=== PATIENT | female | born 1980 | race Caucasian/White ===

== ENCOUNTER 2017-03-29 18:38 | Emergency (ER) | payer BC, SELFPAY ==
[2017-03-29] MEDS ORDERED: Proparacaine 0.5% Opth 15 ML BOT ONE (20:13)
[2017-03-29] MEDS ORDERED: Fluorescein Opthalmic Strip ONE (20:13)
[2017-03-29] MEDS ORDERED: Ibuprofen 800 MG TAB ONE (21:07)
[2017-03-29] MEDS ORDERED: Erythromycin Base 0.5% Oint 1 GM TUBE ONE (21:07)
== END 2017-03-29 21:10 | disposition home or self-care (01) ==
LOC: ERS 18:38
DX: S05.02XA Injury of conjunctiva and corneal abrasion without foreign body, left eye, initial encounter (principal); J45.909 Unspecified asthma, uncomplicated; Z86.73 Personal history of transient ischemic attack (TIA), and cerebral infarction without residual deficits; X58.XXXA Exposure to other specified factors, initial encounter
CPT/HCPCS: 99284

== ENCOUNTER 2017-05-26 12:01 | Observation (INO) | payer BC, SELFPAY ==
[2017-05-26 12:32] LABS: #Eosinphils 0.5 thou/uL (0.0-0.7); #Lymphocytes 1.8 thou/uL (1.20-3.40); #Monocytes 0.4 thou/uL (0.11-0.59); #Neutrophils 4.6 thou/uL (1.40-6.50); %Basophils 0.3 % (0.0-1.0); %Lymphocytes 24.1 % (21.0-51.0); Hematocrit 38.8 % (36.0-47.0); Mean Platelet Volume 7.1 fL (7.4-10.4); Red Blood Cell (RBC) Count 4.36 mill/uL (4.20-5.40); White Blood Cell (WBC) Count 7.3 thou/uL (4.8-10.8)
[2017-05-26 12:53] LABS: ALT (SGPT) 21 U/L (8-55); AST (SGOT) 14 U/L (5-34); Alkaline Phosphatase 98 U/L (40-150); Anion Gap 13 mmol/L (10-20); BUN (Urea Nitrogen) 13 mg/dL (7.0-18.7); Bilirubin, Total 0.5 mg/dL (0.2-1.2); Calc. Creatinine Clearance 0 mL/min (70-130); Calcium 9.4 mg/dL (7.8-10.44); Carbon Dioxide 28 mmol/L (22-29); Chloride 103 mmol/L (98-107); Estimated GFR-MDRD Greater than 90; Globulin 2.8 g/dL (2.4-3.5); Protein, Total 6.9 g/dL (6.0-8.3)
[2017-05-26 13:15] LABS: Troponin I Less than 0.010 ng/mL (< 0.028)
--- NOTE | 2017-05-26 13:26 | RAD ---
PORTABLE CHEST: Date: 05/26/17 HISTORY: Syncope. COMPARISON: 01/30/16 study. FINDINGS: The film was shot in a lordotic fashion. The heart size appears enlarged. Mediastinal structures are unremarkable. Lungs are clear of infiltrates. IMPRESSION: Cardiomegaly. Heart size appears more prominent than on the prior exam. A PA chest film would be help ful in better assessment. POS: [facility]
[2017-05-26 13:32] LABS: Bilirubin Negative (Negative); Blood, Urine Negative (Negative); Glucose, Urine (Dipstick) Negative (Negative); Ketone, Urine Negative (Negative); Nitrite Negative (Negative); Protein, Urine (Dipstick) Negative (Neg-Trace); Urobilinogen 0.2 mg/dL (0.2-1.0)
[2017-05-26 13:38] LABS: Bacteria/HPF None Seen HPF (None Seen); Hyaline Casts/LPF 0-3 HYALINE CAST LPF (0-3 Hyaline); RBC/HPF 0-3 HPF (0-3); WBC/HPF 0-3 HPF (0-3)
--- NOTE | 2017-05-26 14:46 | CT ---
CT ANGIOGRAM OF CHEST: Date: 05/26/17 HISTORY: Dizziness. Syncopal episode. Elevated D-Dimer. COMPARISON: None. TECHNIQUE: CT angiogram of chest performed in axial plane. Bilateral oblique and coronal three-dimensional refor matted images are submitted for interpretation. FINDINGS: There is a well circumscribed hypodensity in the prevascular space compatible with a 2.0 cm cyst. No solid mass or lymphadenopathy in the mediastinum. Heart size is normal. No pericardial fluid. The tho racic aorta and upper abdominal aorta have an overall normal caliber. No periaortic fat stranding. Visualized solid organs are unremarkable. Trachea and central bronchi are patent. Dependent atelectatic changes are noted. There is a 5.0 mm no dule in the right lower lobe. There is a 4.0 mm nodule in the superior segment of the right lower lob e. Inadequate contrast opacification of pulmonary arterial system to level of segmental arteries. No filling defect to suggest thromboembolism. No lytic or blastic lesions in the osseous structures. IMPRESSION: 1. No evidence of pulmonary artery embolism to level of segmental arteries. 2. 5.0 mm nodule in the right lower lobe. Follow-up CT in 1 year is recommended. CODE LN. POS: [facility]
[2017-05-26] MEDS ORDERED: Acetaminophen 325 MG TAB PO PRN (15:09)
[2017-05-26] MEDS ORDERED: Ondansetron ODT 4 MG TAB PO PRN (15:09)
[2017-05-26] MEDS ORDERED: Ondansetron HCl/PF 4 MG/2 ML Vial IVP PRN (15:09)
[2017-05-26] MEDS ORDERED: Acetaminophen 650 MG Suppository PR PRN (15:09)
[2017-05-26] MEDS ORDERED: diphenhydrAMINE 50 MG CAP PO PRN (15:09)
[2017-05-26] MEDS ORDERED: Calcium Carbonate 500 MG ChewTAB PO PRN (15:09)
[2017-05-26] MEDS ORDERED: Milk Of Magnesia 30 ML UDCUP PO PRN (15:09)
[2017-05-26 15:42] LABS: Troponin I Less than 0.010 ng/mL (< 0.028)
[2017-05-26] MEDS ORDERED: ISOVUE-370 76%-LOCM 1 ML ONE ×2 (15:44→15:46)
[2017-05-26] MEDS ORDERED: Ketorolac Tromethamine 30 MG/ML VIAL IVP SCH (16:00)
[2017-05-26] MEDS ORDERED: Aspirin 325 MG TAB PO SCH (16:00)
[2017-05-26] MEDS ORDERED: Betamethasone Val 0.1% OINT 15 GM TUBE TOP PRN (16:14)
[2017-05-26] MEDS ORDERED: Metoclopramide HCl 10 MG/2 ML VIAL IVP SCH (16:15)
[2017-05-26] MEDS ORDERED: diphenhydrAMINE 50 MG/ML VIAL IVP SCH (16:15)
[2017-05-26] MEDS: Sodium Chloride 0.9% 1,000 ML IV SCH (16:37)
[2017-05-26 16:39] VITALS: BMI 61.4
[2017-05-26 16:39] LABS: Hemoglobin A1c 5.2 % (4.0-6.0)
[2017-05-26 16:50] LABS: Magnesium 2.1 mg/dL (1.6-2.6); Phosphorus 4.3 mg/dL (2.3-4.7)
[2017-05-26 18:48] LABS: Troponin I Less than 0.010 ng/mL (< 0.028)
[2017-05-26] MEDS: Docusate 100 MG CAP PO SCH (20:48)
[2017-05-26] MEDS ORDERED: Ketorolac Tromethamine 30 MG/ML VIAL IVP PRN (22:00)
--- NOTE | 2017-05-26 22:03 | CT ---
CT HEAD NONCONTRAST CTA AMBLER OF [place] AND 3D VOLUME RENDERING CTA NECK WITH 3D VOLUME RENDERING 05/26/17 CLINICAL HISTORY: Syncope. FINDINGS: No evidence of intracranial hemorrhage, mass effect, midline shift, or ventriculomegaly. There is limited evaluation of the arteriogram of the neck due to patient body habitus. The imaged ao rtic arch is grossly patent as are the great vessels that emanate from the aortic arch. Bilateral sub clavian arteries are grossly patent. Evaluation of the bilateral common carotid arteries and cervical internal carotid arteries reveals no evidence of high grade focal stenosis or occlusion. There is a dominant left vertebral artery which is patent throughout its course. The right vertebral artery is d iffusely small in caliber. Evaluation of the [place] of [place] reveals no high grade stenosis or occlusion involving the MAHI, MCA , or [employer] bilaterally. Each terminal carotid artery is patent. No significant stenosis of the basilar artery. No discrete intracranial aneurysm is seen. IMPRESSION: 1. No acute arterial pathology of the head and neck. 2. No acute intracranial hemorrhage or mass effect.
[2017-05-27] MEDS: Sodium Chloride 0.9% 1,000 ML IV SCH ×2 (02:05→13:23)
[2017-05-27 05:42] LABS: Anion Gap 12 mmol/L (10-20); BUN (Urea Nitrogen) 11 mg/dL (7.0-18.7); Calc. Creatinine Clearance 237 mL/min (70-130); Calcium 8.2 mg/dL (7.8-10.44); Carbon Dioxide 20 mmol/L (22-29); Chloride 107 mmol/L (98-107); Cholesterol 176 mg/dl (< 200 Desired); Estimated GFR-MDRD Greater than 90; LDL Cholesterol, Calculated 102 mg/dL
[2017-05-27 05:53] LABS: #Eosinphils 0.5 thou/uL (0.0-0.7); #Lymphocytes 1.7 thou/uL (1.20-3.40); #Monocytes 0.5 thou/uL (0.11-0.59); #Neutrophils 4.2 thou/uL (1.40-6.50); %Basophils 0.6 % (0.0-1.0); %Eosinophils 7.2 % (0.0-10.0); %Lymphocytes 24.2 % (21.0-51.0); %Monocytes 7.5 % (0.0-10.0); Mean Platelet Volume 6.4 fL (7.4-10.4)
--- NOTE | 2017-05-27 06:54 | PDOC.FM ---
- Subjective Subjective: Patient is lying comfortably in bed. She has not had any more episodes of syncope. Reports an odd stinging sensation in her R latter day area when she uses the bathroom or strains and that pain happened before both episodes of syncope yesterday. Today, DELATORRE is resolved. - Objective MAR Reviewed: Yes Vital Signs & Weight: Vital Signs (12 hours) Temp Pulse Resp BP BP Pulse Ox 05/27/17 05:04 98.0 F 73 20 96/48 L 95 05/27/17 00:00 98.8 F 79 16 108/59 L 94 L 05/26/17 20:48 97.6 F 79 16 05/26/17 19:40 97.6 F 79 16 121/59 L 94 L Weight Weight 115.711 kg I&O: 05/25/17 05/26/17 05/27/17 06:59 06:59 06:59 Intake Total 1895 Balance 1895 Result Diagrams: 05/27/17 05:48 05/27/17 05:12 Phys Exam - Physical Examination Constitutional: NAD HEENT: moist MMs Neck: full ROM ttp along suboccipital musculature Respiratory: no wheezing, no rales, no rhonchi, clear to auscultation bilateral Cardiovascular: RRR, no significant murmur Gastrointestinal: soft, non-tender 1+ edema b/l Neurological: moves all 4 limbs Psychiatric: normal affect, A&O x 3 Skin: cap refill <2 seconds Dx/Plan (1) Asthma Code(s): J45.909 - UNSPECIFIED ASTHMA, UNCOMPLICATED Status: Acute (2) Syncope Code(s): R55 - SYNCOPE AND COLLAPSE Status: Acute (3) HTN (hypertension) Code(s): I10 - ESSENTIAL (PRIMARY) HYPERTENSION Status: Acute (4) Pulmonary nodule Code(s): R91.1 - SOLITARY PULMONARY NODULE Status: Acute (5) Morbid obesity Code(s): E66.01 - MORBID (SEVERE) OBESITY DUE TO EXCESS CALORIES Status: Acute (6) Bilateral lower extremity edema Code(s): R60.0 - LOCALIZED EDEMA Status: Acute - Plan Plan: Syncope - Likely 2/2 migraine with complex aura vs hypotension vs. CVA - Orthostatics wnl - BP's low and on home Amlodipine, have held, but could be precipitating event - CThead and CTAhead and neck wnl - continue telemetry monitoring - echo to evaluate for valvular pathology HTN - held home Amlodipine - patient hypotensive overnight Headache - likely migraine, responded to combination of Benadryl, Reglan, and Toradol - will discharge on migraine medication. Likely Sumitriptan. Asthma - albuterol nebs prn Pulmonary Nodule - incidental finding on CTa - follow up outpatient in 1 month Morbid Obesity - educate on diet and exercise LE Edema - likely 2/2 Amlodipine - will get echo to evaluate cardiac function
[2017-05-27] MEDS ORDERED: Aspirin 325 MG TAB PO SCH (09:00)
[2017-05-27] MEDS: Docusate 100 MG CAP PO SCH (10:05)
--- NOTE | 2017-05-27 11:36 | HP-2 ---
DATE OF ENCOUNTER: 05/26/2017 TIME OF ENCOUNTER: 1530 hours. CODE STATUS: FULL. PRIMARY CARE PHYSICIAN: Dr. Hiram Weinberg, [facility] physician. ATTENDING: Dr. Nba Bahena. PGY-3: Dr. Susie Robbins. HISTORIAN: Patient. CHIEF COMPLAINT: Passed out. HISTORY OF PRESENT ILLNESS: A 36-year-old patient with past medical history significant for asthma, newly diagnosed hypertension, recent migraine, headaches who presented with 2 episodes of syncope tod ay. Patient states the initial one occurred at work at a long-term stating she helped physician of patient and then went about her business turning around suddenly and then after the sitting position changed saw blackness and then "woke up from passing out." She states that she did have a headache a t that time, but denied any other concerning symptoms including dizziness, presyncopal syndrome and n o nausea or vomiting, chest pain, shortness of breath prior to or associated with episode. Because o f this episode, patient was sent to the emergency room. She drove herself to the ED and prior to arr iving at the ED, patient states she passed out again at the rug white. She again remembers seeing bl ackness and having a headache at the time of the event, but denies any presyncopal prodrome. The pat ient states that daughter behind her had to come get her out of the car and helped her get to the [facility] room, because she was was slumped over and passed out at the light. Patient has had increasin g headaches over the last few months and describes them as migraines, which are not helped with over- the-counter Excedrin pills. Patient endorses her headaches being like "not getting enough blood in h er head". She does also have a significant history for possible TIA previously, which is also associ ated with headache. The patient was evaluated at [facility] for her symptoms this past July and denies any current deficit. PAST MEDICAL HISTORY: Significant for asthma, fibromyalgia, migraine disorder, hypertension as well as prior cervical cancer, status post cryotherapy 5 years ago. PAST SURGICAL HISTORY: Cholecystectomy, section, right knee surgery, and cryotherapy to the cervix. ALLERGIES: To LATEX and ALDARA. MEDICATIONS: Amlodipine 5 mg p.o. every day, and DuoNeb p.r.n. symptoms. FAMILY HISTORY: The patient denies any significant past medical history. SOCIAL HISTORY: Patient denies any tobacco, alcohol or drug use. The patient works as an aide in a long-term, she is , with one adoptive child. Denies any ill contacts. Last menstrual period on 04/29/2017. REVIEW OF SYSTEMS: A complete 10-point review of systems was performed and found to be positive per HPI. Additionally, the patient endorses chills, but no fever, fatigue and malaise, vision changes wi th blackness in her vision, slight increase in lower extremity edema, nausea, rash as in lesions and itching to bilateral feet, bilateral knee pain after a fall from a syncopal episode, swelling and obv iously the syncope. Patient significantly denied any shortness of breath, cough, congestion, orthopn ea or paroxysmal nocturnal dyspnea. PHYSICAL EXAMINATION: VITAL SIGNS: Blood pressure on arrival to the ED, 110/57 which increased to 160/90 throughout her em ergency room stay, pulse 93, respirations 18, pulse ox 96% on room air, weight 101 kilograms. GENERAL: Alert, oriented x3, no acute distress. Well-developed, obese, appropriately interactive fe male. EYES: Pupils equal, round, react to light. Extraocular muscles intact. Conjunctivae within normal limits . ENT: Nasal mucosa within normal limits. Oropharynx within normal limits. Right serous otitis behin d the TM with phonophobia. NECK: Supple, no lymphadenopathy, no thyromegaly, no carotid bruits. CARDIOVASCULAR: Regular rate and rhythm, no murmurs, no gallops. Radial and pedal pulses 2+/4. RESPIRATORY: Normal effort, no retractions. LUNGS: Clear to auscultation bilaterally. SKIN: Warm and dry, no cyanosis. Lesions include bilateral feet eczematous rashes which have excori ations. ABDOMEN: Soft, nontender to palpation. Bowel sounds are active in all 4 quadrants. Abdomen is obese, but no masses or distention. No costovertebral angle tenderness. EXTREMITIES: No clubbing, no cyanosis, trace bilateral nonpitting edema. MUSCULOSKELETAL: Structure, tone, strength and range of motion within normal limits and intact. NEUROLOGIC: No focal deficits. Sensation intact. Cranial nerves are intact with no focal deficits. GCS 15. PSYCHIATRIC: Appropriate. LABORATORY DATA: 1. CBC: White blood cells 7.3, hemoglobin 13, hematocrit 38.8, MCV 89, platelets 194. 2. CMP: Sodium 140, potassium 3.8, chloride 103, bicarbonate 28, BUN 13, creatinine 0.69, GFR 90, g lucose 125, calcium 9.4, protein 6.9, albumin 4.1, AST 14, ALT 21, alkaline phosphatase 98, bilirubin 0.5. 3. Cardiac enzymes: CK 51, CK-MB 0.8, troponin less than 0.010. D-dimer 0.49. UA performed are gr ossly negative without trace leukocyte esterase and 7-10 squamous epithelial cells. Beta hCG negativ e. 4. EKG, flattened T waves in inferior leads and a QTC of 391, unchanged from 2016 prior scan. 5. Chest x-ray shows cardiomegaly, which is increased from prior studies, otherwise no acute disease . IMAGING: Patient received a CT angiogram of the chest given her elevated D-dimer and found to have n o pulmonary embolus; however, did have 5 mm right lower lobe pulmonary nodule in which the radiologis t recommended repeat CT scan within 1 year. ASSESSMENT AND PLAN: A 36-year-old female with: 1. Syncope, etiology likely migraine with atypical; however, differential diagnoses also includes ne urogenic versus cardiogenic cause. Orthostatic presyncopal and reflex syncope/vasovagal syncope were on the differential diagnosis given patient's HPI and lack of prodromal symptoms. We will monitor t he patient on tele overnight. Repeat EKG on p.r.n. symptoms and again in the morning, we will check CT angiogram of the head and neck to rule out any pathology and consider MRI in the morning. We chris l also continue to monitor vitals and check orthostatics at this time. Treat migraines symptomatical ly and consider Neurology consultation given syncope and migraine with concern for neurogenic versus cardiogenic etiology. 2. Migraine headache, cocktail given with Toradol, Reglan, and Benadryl. The patient will likely ne ed prophylactic treatment given her recurrent frequent migraine not treated with OTC Excedrin. Sympt oms appeared to be approximately once per week per patient history. 4. Hypertension, this is uncontrolled based on studies here. We will continue the amlodipine and mo nitor given her medications and adjust as needed. 5. History of possible transient ischemic attack. Check records from [facility] to compare prior imaging studies. 6. Cardiomegaly patient endorses occasional weight gain, increase in lower extremity edema as well as a new onset uncontrolled hypertension, concern for possible underlying diastolic congestive h eart failure versus systolic congestive heart failure. We will check an echocardiogram and follow up pending results; however, does not appear to be exacerbated or overtly volume overloaded at this kristopher e. 7. A 5 mm pulmonary nodule and the patient is not symptomatic at this time. A repeat CT scan of the chest within one year per radiology recommendations. 8. Asthma, p.r.n. DuoNeb, albuterol. DISPOSITION AND LENGTH OF STAY: Anticipate 1-2 days of hospital stay. Symptomatic medication will be provided. History and physical as well as management were discussed with Dr. Purvi Pop in agreement with the assessment and plan.
--- NOTE | 2017-05-27 15:04 | ADD-PRG ---
DATE OF SERVICE: 05/27/2017 This is an addendum to the note of Dr. Debbie Simon. Ms. Junior is a pleasant, obese 36-year-old female admitted with syncope. Her workup thus far, [facility] is rather extensive, is negative. This includes a CT of the head and neck negative. EKG showing no arrhythmia. Telemetry so for showing no arrhythmia. Labs all within normal limits. It was noted that her blood pressure systolic is 95 and this possibly could account for her syncope, although she gave no history consistent with orthostasis. This was also checked by us and there was no orthostas is. In any event, we will hold her amlodipine, monitor blood pressure and have her followup with her PCP.
[2017-05-27 16:33] VITALS: BP 125/60; TEMP 98.2
== END 2017-05-27 18:12 | disposition home or self-care (01) ==
LOC: ERS 12:01 → 2SW 16:22
PROVIDERS: ADMIT Family Medicine; ATTEND Family Medicine
DX: R55 Syncope and collapse (principal); J45.909 Unspecified asthma, uncomplicated; I10 Essential (primary) hypertension; G43.909 Migraine, unspecified, not intractable, without status migrainosus; R91.1 Solitary pulmonary nodule; Z91.040 Latex allergy status; Z88.8 Allergy status to other drugs, medicaments and biological substances; Z79.899 Other long term (current) drug therapy; Z98.890 Other specified postprocedural states; Z85.41 Personal history of malignant neoplasm of cervix uteri
CPT/HCPCS: 36415; 70496; 70498; 71010; 71275; 80048; 80053; 80061; 81003; 81015; 82553; 83036; 83735; 84100; 84443; 84484; 84703; 85025; 85379; 93005; 93010; 93306; 96361; 96374; 96375; G0378; J1200; J1885; J2765

== ENCOUNTER 2017-06-22 11:26 | Emergency (ER) | payer BC | END 2017-06-22 13:26 | disposition home or self-care (01) | LOC: ERS 11:26 | DX: J11.1 Influenza due to unidentified influenza virus with other respiratory manifestations (principal); E66.9 Obesity, unspecified; J45.909 Unspecified asthma, uncomplicated; Z86.73 Personal history of transient ischemic attack (TIA), and cerebral infarction without residual deficits; Z85.41 Personal history of malignant neoplasm of cervix uteri | CPT/HCPCS: 93005 ==

== ENCOUNTER 2017-06-24 17:08 | Emergency (ER) | payer BC, SELFPAY ==
[2017-06-24 18:23] LABS: #Eosinphils 0.6 thou/uL (0.0-0.7); #Lymphocytes 1.5 thou/uL (1.20-3.40); #Monocytes 0.4 thou/uL (0.11-0.59); #Neutrophils 5.1 thou/uL (1.40-6.50); %Basophils 0.4 % (0.0-1.0); %Lymphocytes 19.4 % (21.0-51.0); %Monocytes 5.6 % (0.0-10.0); %Neutrophils 66.6 % (42.0-75.0); Hemoglobin 13.2 g/dL (12.0-16.0); Mean Corpuscular HGB CONC 32.7 g/dL (32.0-36.0); Mean Corpuscular Hemoglobin 29.6 pg (27.0-31.0); Mean Corpuscular Volume 90.5 fl (81.0-99.0); Mean Platelet Volume 6.9 fL (7.4-10.4); Platelet Count 192 thou/uL (130-400); RBC Distribution Width 12.6 % (11.5-14.5); Red Blood Cell (RBC) Count 4.45 mill/uL (4.20-5.40); White Blood Cell (WBC) Count 7.7 thou/uL (4.8-10.8)
[2017-06-24 18:46] LABS: ALT (SGPT) 25 U/L (8-55); AST (SGOT) 19 U/L (5-34); Albumin 4.1 g/dL (3.5-5.0); Alkaline Phosphatase 97 U/L (40-150); Anion Gap 13 mmol/L (10-20); BUN (Urea Nitrogen) 10 mg/dL (7.0-18.7); Bilirubin, Total 0.4 mg/dL (0.2-1.2); Calc. Creatinine Clearance 0 mL/min (70-130); Calcium 9.5 mg/dL (7.8-10.44); Carbon Dioxide 26 mmol/L (22-29); Chloride 103 mmol/L (98-107); Estimated GFR-MDRD 87; Globulin 3.1 g/dL (2.4-3.5); Glucose 104 mg/dL (70-105); Potassium 4.2 mmol/L (3.5-5.1); Protein, Total 7.2 g/dL (6.0-8.3); Sodium 138 mmol/L (136-145)
--- NOTE | 2017-06-24 18:52 | RAD ---
LEFT ANKLE THREE VIEWS: 06/24/17 HISTORY: Wound to ankle region, worsening over the last few days. There is no signs of fracture or joint effusion. Calcaneal spurs are present. No plain film evidence of osteomyelitis. IMPRESSION: No acute findings. POS: [facility]
== END 2017-06-24 19:23 | disposition home or self-care (01) ==
LOC: ERS 17:08
DX: L01.00 Impetigo, unspecified (principal); L03.116 Cellulitis of left lower limb; L03.114 Cellulitis of left upper limb; L03.113 Cellulitis of right upper limb; J45.909 Unspecified asthma, uncomplicated; Z86.73 Personal history of transient ischemic attack (TIA), and cerebral infarction without residual deficits
CPT/HCPCS: 36415; 80053; 83605; 85025

== ENCOUNTER 2017-07-25 00:03 | Emergency (ER) | payer BC, OTHER ==
[2017-07-25] MEDS ORDERED: HYDROcodone/Acetaminophen 10/325 mg Tablet ONE (02:10)
--- NOTE | 2017-07-25 07:34 | RAD ---
RIGHT KNEE 4 VIEWS: Date: 07/25/17 HISTORY: Pain. COMPARISON: Knee radiograph from 2013. FINDINGS: No acute fracture or malalignment. No significant joint effusion, although the lateral radiograph edith luation is limited. IMPRESSION: No acute fracture or malalignment. POS: [facility]
== END 2017-07-25 02:17 | disposition home or self-care (01) ==
LOC: ERS 00:03
DX: S83.91XA Sprain of unspecified site of right knee, initial encounter (principal); E66.9 Obesity, unspecified; J45.909 Unspecified asthma, uncomplicated; Z86.73 Personal history of transient ischemic attack (TIA), and cerebral infarction without residual deficits; X58.XXXA Exposure to other specified factors, initial encounter

== ENCOUNTER 2017-08-03 15:06 | Outpatient (CLI) | payer OTHER | END 2017-08-03 15:07 | disposition home or self-care (01) | LOC: BICMRI 15:06 | PROVIDERS: ATTEND Family Medicine | DX: M25.561 Pain in right knee (principal); Z98.890 Other specified postprocedural states ==

== ENCOUNTER 2017-09-16 01:19 | Emergency (ER) | payer BC, SELFPAY ==
[2017-09-16] MEDS ORDERED: Ketorolac Tromethamine 30 MG/ML VIAL ONE (03:10)
--- NOTE | 2017-09-16 08:33 | RAD ---
TWO VIEWS CHEST: 09/16/2017 HISTORY: Syncope. COMPARISON: 05/26/2017 FINDINGS: No pneumothorax or pleural fluid. No focal consolidation or alveolar edema. Heart and mediastinal c ontours are grossly unremarkable. The cardiac silhouette is prominent. Clips in the right upper quadrant suggest a prior cholecystectomy. IMPRESSION: No acute findings. POS: [facility]
== END 2017-09-16 04:14 | disposition home or self-care (01) ==
LOC: ERS 01:19
DX: S20.219A Contusion of unspecified front wall of thorax, initial encounter (principal); E66.9 Obesity, unspecified; J45.909 Unspecified asthma, uncomplicated; Z86.73 Personal history of transient ischemic attack (TIA), and cerebral infarction without residual deficits; Z85.89 Personal history of malignant neoplasm of other organs and systems; W55.82XA Struck by other mammals, initial encounter
CPT/HCPCS: 71046; 96372; J1885

== ENCOUNTER 2017-11-01 09:36 | Emergency (ER) | payer OTHER ==
[2017-11-01 10:41] LABS: #Eosinphils 0.4 thou/uL (0.0-0.7); #Lymphocytes 1.5 thou/uL (1.20-3.40); #Monocytes 0.4 thou/uL (0.11-0.59); #Neutrophils 3.4 thou/uL (1.40-6.50); %Basophils 0.5 % (0.0-1.0); %Lymphocytes 25.7 % (21.0-51.0); %Monocytes 7.2 % (0.0-10.0); %Neutrophils 59.6 % (42.0-75.0); Hemoglobin 12.3 g/dL (12.0-16.0); Mean Corpuscular HGB CONC 33.7 g/dL (32.0-36.0); Mean Corpuscular Hemoglobin 29.6 pg (27.0-31.0); Mean Corpuscular Volume 87.8 fl (81.0-99.0); Mean Platelet Volume 7.3 fL (7.4-10.4); Platelet Count 169 thou/uL (130-400); RBC Distribution Width 12.9 % (11.5-14.5); Red Blood Cell (RBC) Count 4.17 mill/uL (4.20-5.40); White Blood Cell (WBC) Count 5.6 thou/uL (4.8-10.8)
[2017-11-01 11:03] LABS: ALT (SGPT) 27 U/L (8-55); AST (SGOT) 14 U/L (5-34); Albumin 3.9 g/dL (3.5-5.0); Alkaline Phosphatase 92 U/L (40-150); Anion Gap 12 mmol/L (10-20); BUN (Urea Nitrogen) 11 mg/dL (7.0-18.7); Bilirubin, Total 0.3 mg/dL (0.2-1.2); CK (CPK) 39 U/L (29-168); Calc. Creatinine Clearance 0 mL/min (70-130); Calcium 8.9 mg/dL (7.8-10.44); Carbon Dioxide 26 mmol/L (22-29); Chloride 105 mmol/L (98-107); Estimated GFR-MDRD Greater than 90; Globulin 2.6 g/dL (2.4-3.5); Glucose 114 mg/dL (70-105); Potassium 3.8 mmol/L (3.5-5.1); Protein, Total 6.5 g/dL (6.0-8.3); Sodium 139 mmol/L (136-145)
[2017-11-01 11:08] LABS: CKMB 0.5 ng/mL (0-6.6); Troponin I Less than 0.010 ng/mL (< 0.028)
[2017-11-01] MEDS ORDERED: Loratadine 10 MG TAB PO SCH (11:30)
--- NOTE | 2017-11-01 11:44 | CT ---
NONCONTRAST HEAD CT: History: Patient woke up feeling dizzy. Comparison: 12-24-13 Technique: Noncontrast head CT is performed from skull base to skull vertex. FINDINGS: No parenchymal hemorrhage. No extraaxial hematoma. No midline shift. Basilar cisterns are patent. Bra in volume is age appropriate. Cortical acuna white matter differentiation is preserved. The ventricles and sulci are patent and symmetric. Complete opacification of the left sphenoid sinus, similar to the previous examination. Intact calvar ium. IMPRESSION: 1. No acute intracranial process. 2. Left sphenoid sinus disease, chronic. POS: [facility]
[2017-11-01] MEDS ORDERED: Meclizine HCl 25 MG TAB ONE (11:51)
== END 2017-11-01 12:40 | disposition home or self-care (01) ==
LOC: ERS 09:36
DX: R42 Dizziness and giddiness (principal); E66.9 Obesity, unspecified; J45.909 Unspecified asthma, uncomplicated; Z86.73 Personal history of transient ischemic attack (TIA), and cerebral infarction without residual deficits
CPT/HCPCS: 70450; 80053; 82550; 82553; 84484; 85025; 93005; 94760

== ENCOUNTER 2017-12-18 23:52 | Emergency (ER) | payer BC, SELFPAY ==
[2017-12-19 01:04] LABS: #Eosinphils 0.5 thou/uL (0.0-0.7); #Lymphocytes 2.2 thou/uL (1.20-3.40); #Monocytes 0.5 thou/uL (0.11-0.59); #Neutrophils 4.9 thou/uL (1.40-6.50); %Basophils 0.1 % (0.0-1.0); %Monocytes 6.4 % (0.0-10.0); %Neutrophils 60.4 % (42.0-75.0); Mean Corpuscular HGB CONC 34.8 g/dL (32.0-36.0); Mean Corpuscular Volume 86.3 fL (78.0-98.0); Mean Platelet Volume 7.1 fL (7.4-10.4); Platelet Count 208 thou/uL (130-400); RBC Distribution Width 12.7 % (11.5-14.5); Red Blood Cell (RBC) Count 4.33 mill/uL (4.20-5.40); White Blood Cell (WBC) Count 8.1 thou/uL (4.8-10.8)
[2017-12-19 01:07] LABS: Bilirubin Negative (Negative); Blood, Urine Large (Negative); Glucose, Urine (Dipstick) Negative (Negative); Leukocyte Negative (Negative); Nitrite Negative (Negative); Protein, Urine (Dipstick) Negative (Neg-Trace); Specific Gravity, Urine 1.025 (1.005-1.030); Urobilinogen 0.2 mg/dL (0.2-1.0)
[2017-12-19 01:08] LABS: Clarity Clear (Clear)
[2017-12-19 01:11] LABS: ALT (SGPT) 16 U/L (8-55); AST (SGOT) 13 U/L (5-34); Albumin 4.2 g/dL (3.5-5.0); Alkaline Phosphatase 99 U/L (40-150); Anion Gap 13 mmol/L (10-20); BUN (Urea Nitrogen) 9 mg/dL (7.0-18.7); Bilirubin, Total 0.2 mg/dL (0.2-1.2); Calc. Creatinine Clearance 0 mL/min (70-130); Carbon Dioxide 25 mmol/L (22-29); Chloride 102 mmol/L (98-107); Estimated GFR-MDRD Greater than 90; Globulin 2.8 g/dL (2.4-3.5); Glucose 117 mg/dL (70-105); Lipase 11 U/L (8-78); Potassium 3.9 mmol/L (3.5-5.1); Sodium 136 mmol/L (136-145)
[2017-12-19 01:16] LABS: Bacteria/HPF None Seen HPF (None Seen); Crystals/HPF None Seen HPF (Negative); Renal Epithelial None Seen HPF (0-3); Squamous Epithelial 0-3 HPF (0-3); Transitional Epithelial NONE SEEN HPF (0-3); WBC/HPF 0-3 HPF (0-3); Yeast-All Forms None Seen HPF (None Seen)
[2017-12-19 01:17] LABS: Hyaline Casts/LPF NONE SEEN LPF (0-3 Hyaline); Pregnancy Test - Urine (BHCG) Negative (Negative); Pregu Control Background? CLEAR/WHITE (CLR/WHITE); Pregu Control Bar Appear? YES (CONTROL BAR); Specific Gravity 1.025 (1.002-1.036)
[2017-12-19] MEDS ORDERED: Ketorolac Tromethamine 30 MG/ML VIAL ONE (01:53)
[2017-12-19] MEDS ORDERED: Ondansetron ODT 4 MG TAB ONE (01:53)
--- NOTE | 2017-12-19 08:14 | CT ---
FINAL REPORT EMERGENT AFTER HOURS CT OF THE ABDOMEN AND PELVIS WITHOUT CONTRAST: FINDINGS/IMPRESSION: I agree with the findings and impression given in the preliminary report per [facility] physician. No nhung dence of acute intraabdominal/pelvic abnormality. POS: [facility]
== END 2017-12-19 04:30 | disposition home or self-care (01) ==
LOC: ERS 23:52
DX: R10.9 Unspecified abdominal pain (principal); E66.9 Obesity, unspecified; J45.909 Unspecified asthma, uncomplicated; Z86.73 Personal history of transient ischemic attack (TIA), and cerebral infarction without residual deficits
CPT/HCPCS: 36415; 74176; 80053; 81003; 81015; 81025; 82550; 83690; 85025; 93005; 96361; 96374; 96375; J1885; J2270; Q0162

== ENCOUNTER 2017-12-21 16:42 | Emergency (ER) | payer SELFPAY ==
[2017-12-21 17:05] LABS: #Eosinphils 0.3 thou/uL (0.0-0.7); #Lymphocytes 1.3 thou/uL (1.20-3.40); #Monocytes 0.3 thou/uL (0.11-0.59); #Neutrophils 5.7 thou/uL (1.40-6.50); %Basophils 0.3 % (0.0-1.0); %Eosinophils 4.5 % (0.0-10.0); %Lymphocytes 16.9 % (21.0-51.0); %Monocytes 4.4 % (0.0-10.0); %Neutrophils 73.9 % (42.0-75.0); Hemoglobin 12.6 g/dL (12.0-16.0); Mean Corpuscular HGB CONC 34.1 g/dL (32.0-36.0); Mean Corpuscular Hemoglobin 29.3 pg (27.0-31.0); Mean Corpuscular Volume 86.1 fL (78.0-98.0); Mean Platelet Volume 6.5 fL (7.4-10.4); Platelet Count 205 thou/uL (130-400); RBC Distribution Width 12.5 % (11.5-14.5); White Blood Cell (WBC) Count 7.6 thou/uL (4.8-10.8)
--- NOTE | 2017-12-21 17:28 | RAD ---
RADIOGRAPH CHEST 1 VIEW: 12/21/17 HISTORY: 37-year-old female with acute chest pain. FINDINGS: There are no air space densities, pulmonary edema, pneumothorax, or cardiomegaly. The lateral costop hrenic angles are sharp. IMPRESSION: No acute cardiopulmonary findings. pretty [] POS: [facility]
[2017-12-21] MEDS ORDERED: Nitroglycerin 0.4 MG TAB (25 Tab Bottle) ONE (17:32)
[2017-12-21 17:33] LABS: CKMB 0.6 ng/mL (0-6.6); Troponin I Less than 0.010 ng/mL (< 0.028)
[2017-12-21 17:35] LABS: ALT (SGPT) 23 U/L (8-55); AST (SGOT) 22 U/L (5-34); Albumin 4.3 g/dL (3.5-5.0); Alkaline Phosphatase 96 U/L (40-150); Anion Gap 12 mmol/L (10-20); BUN (Urea Nitrogen) 9 mg/dL (7.0-18.7); Bilirubin, Total 0.5 mg/dL (0.2-1.2); CK (CPK) 51 U/L (29-168); Calc. Creatinine Clearance 0 mL/min (70-130); Calcium 9.4 mg/dL (7.8-10.44); Carbon Dioxide 29 mmol/L (22-29); Chloride 100 mmol/L (98-107); Estimated GFR-MDRD 86; Globulin 2.8 g/dL (2.4-3.5); Glucose 124 mg/dL (70-105); Potassium 3.7 mmol/L (3.5-5.1); Protein, Total 7.1 g/dL (6.0-8.3); Sodium 137 mmol/L (136-145)
[2017-12-21] MEDS ORDERED: Ondansetron ODT 4 MG TAB ONE (18:39)
[2017-12-21 20:12] LABS: Troponin I Less than 0.010 ng/mL (< 0.028)
--- NOTE | 2017-12-25 12:58 | EKG ---
Test Reason : Blood Pressure : / mmHG Vent. Rate : 100 BPM Atrial Rate : 100 BPM P-R Int : 142 ms QRS Dur : 076 ms QT Int : 338 ms P-R-T Axes : 062 013 031 degrees QTc Int : 436 ms Normal sinus rhythm Possible Left atrial enlargement Nonspecific ST abnormality Abnormal ECG Interference artifact present Confirmed by APULO SUTTON, ANTONETTE ([id number]), proposal editor CATHY DÍAZ ([id number]) on 12/25/2017 12:57:31 PM Referred By: Confirmed By:ANTONETTE BATES MD
== END 2017-12-21 21:10 | disposition home or self-care (01) ==
LOC: ERS 16:42
DX: R07.2 Precordial pain (principal); E66.9 Obesity, unspecified; J45.909 Unspecified asthma, uncomplicated; Z86.73 Personal history of transient ischemic attack (TIA), and cerebral infarction without residual deficits; Z79.899 Other long term (current) drug therapy
CPT/HCPCS: 36415; 71045; 80053; 82553; 83880; 84484; 85025; 85379; 93005; 94760; 96360; Q0162

== ENCOUNTER 2017-12-26 18:23 | Observation (INO) | payer SELFPAY ==
[~2017-12-26 18:23] MED LIST: ISOVUE-370 76%-LOCM 1 ML ONE
[2017-12-26 19:32] LABS: #Basophils 0.1 thou/uL (0.0-0.2); #Eosinphils 0.5 thou/uL (0.0-0.7); #Lymphocytes 1.6 thou/uL (1.20-3.40); #Monocytes 0.5 thou/uL (0.11-0.59); %Eosinophils 5.9 % (0.0-10.0); %Lymphocytes 21.1 % (21.0-51.0); %Monocytes 6.7 % (0.0-10.0); %Neutrophils 65.3 % (42.0-75.0); BHCG - Serum Negative (NEGATIVE); Hemoglobin 12.9 g/dL (12.0-16.0); Mean Corpuscular HGB CONC 33.3 g/dL (32.0-36.0); Mean Corpuscular Hemoglobin 28.8 pg (27.0-31.0); Mean Corpuscular Volume 86.7 fL (78.0-98.0); Platelet Count 209 thou/uL (130-400); Pregs Control Background? CLEAR/WHITE (CLR/WHITE); Pregs Control Bar Appear? YES (CONTROL BAR); RBC Distribution Width 12.6 % (11.5-14.5); Red Blood Cell (RBC) Count 4.46 mill/uL (4.20-5.40); White Blood Cell (WBC) Count 7.7 thou/uL (4.8-10.8)
[2017-12-26 19:41] LABS: ALT (SGPT) 19 U/L (8-55); AST (SGOT) 13 U/L (5-34); Albumin 4.1 g/dL (3.5-5.0); Alkaline Phosphatase 96 U/L (40-150); Anion Gap 13 mmol/L (10-20); BUN (Urea Nitrogen) 9 mg/dL (7.0-18.7); Bilirubin, Total 0.4 mg/dL (0.2-1.2); Calc. Creatinine Clearance 0 mL/min (70-130); Calcium 8.7 mg/dL (7.8-10.44); Carbon Dioxide 25 mmol/L (22-29); Chloride 105 mmol/L (98-107); Estimated GFR-MDRD Greater than 90; Globulin 2.7 g/dL (2.4-3.5); Glucose 113 mg/dL (70-105); Lipase 12 U/L (8-78); Potassium 3.7 mmol/L (3.5-5.1); Protein, Total 6.8 g/dL (6.0-8.3); Sodium 139 mmol/L (136-145)
--- NOTE | 2017-12-26 20:16 | CT ---
CT ANGIO CHEST WITH CONTRAST: INDICATIONS: Chest pain. Assess for pulmonary embolus. TECHNIQUE: Multiple axial tomograms obtained through the chest with IV enhancement following pulmonary angio pro tocol with multiplanar reconstruction and 3D post processing. FINDINGS: The pulmonary arteries show adequate enhancement. No evidence of pulmonary embolus identified. Revi ew of the lung medrano show no evidence of infiltrate. There is a 5 mm nodule in the right lung base, peripherally. Review of the mediastinum reveals an abnormal lymph node in the AP window, which measures up to 2.2 c m. There are other smaller, nonspecific lymph nodes seen. Images through the upper abdomen are unremarkable. IMPRESSION: 1. No evidence of pulmonary embolus. 2. A 5 mm nodule in the posterior right lung base. Follow-up elective CT in six months is recommend ed. 3. An abnormal lymph node in the anterior-posterior window measuring 2.2 cm. Recommend clinical cor relation regarding other adenopathy and followup is recommended. This lymph node can be reassessed a t the time of the repeat CT chest. CODE T POS: [facility]
[2017-12-26] MEDS ORDERED: Water For Inject, Bacteriostat 30 ML ONE (20:28)
[2017-12-26] MEDS ORDERED: methylPREDNISolone Sod Succ/PF 125 MG/2 ML VIAL ONE (20:28)
[2017-12-26 20:49] LABS: CKMB 0.6 ng/mL (0-6.6); Troponin I Less than 0.010 ng/mL (< 0.028)
[2017-12-26] MEDS ORDERED: Ondansetron ODT 8 MG TAB ONE (21:51)
--- NOTE | 2017-12-26 22:33 | PDOC.FPRHP ---
- History of Present Illness Chief Complaint: Chest pain & AMS History of Present Illness: 37yo female with pmh of asthma, obesity, HLD, fibromyalgia, hx of TIA, and recent dx of cluster headaches presented to ED for chest pain and AMS. Today she was driving with and son when she felt intense squeezing chest pain followed by no recollection of events until "waking" in ED. reports she stopped talking mid sentence and became dazed. She was able to continue to drive home. He helped her walk inside and then drove her to the ED. denies noticing any facial drooping, unilateral weakness or changes in speech. She reports recently coming to the ED 2 weeks ago with lower back pain and vomiting. This has not resolved and reports a 20lb weight loss since. Also reports loose stools and continues to have lower back pain radiating to RLQ. Pt also reports new onset of headaches several months ago. They start suddenly in occiput of head and last 2-5 minutes. She "blacks out" during these episodes. Afterwards she feels severely fatigued. These are triggered by walking up stairs, using restroom. ED Course: EKG: Inverted T-waves in V1-3. CTA negative for PE but revealed 5mm nodule in posterior right lung base. CT head for AMS with hx of TIA. Started Hydralazine for BP's 200's/100's. Methyprednisolone administered. - Allergies/Adverse Reactions Allergies Allergy/AdvReac Type Severity Reaction Status Date / Time aloe vera Allergy Verified 05/26/17 16:45 latex Allergy Verified 04/19/15 02:08 - Home Medications Medication Instructions Recorded Confirmed Type Ipratropium/Albuterol Sulfate 3 ml NEB [id number] PRN #0 neb 06/01/13 12/27/17 Rx [DuoNeb] Aspirin [Ecotrin Low Strength] 1 tab PO QAM 12/27/17 12/27/17 History Butalbital/Acetaminophen/Caffe 1 tab PO ONE PRN 12/27/17 12/27/17 History [Fioricet] Naproxen 500 mg PO Q12H PRN 12/27/17 12/27/17 History traMADol HCl [Tramadol HCl] 1 tab PO Q8H PRN 12/27/17 12/27/17 History - History PMHx: Hx of TIA (2017), HLD, Fibromyalgia, obesity, asthma, cluster HAs, cervical dysplasia PSHx: LEEP, Right Knee surgery 2014, FHx: DMII Social: Denies alcohol, tobacco or drug use. Lives with and adopted son. - Review of Systems General: reports: weight/appetite/sleep changes, fatigue. denies: fever/chills Respiratory: reports: shortness of breath. denies: congestion Cardiovascular: reports: chest pain. denies: edema Gastrointestinal: reports: nausea, vomiting, diarrhea, abdominal pain. denies: constipation Genitourinary: denies: incontinence Skin: denies: rashes Musculoskeletal: reports: pain. denies: swelling Neurological: denies: numbness, syncope, weakness (20lb wt loss in 2 weeks) - Vital signs BP: 136/99 HR: 83 RR: 22 Tmax: 98.4 Pox: 96% on RA - Physical Exam Constitutional: NAD, awake, alert and oriented HEENT: normocephalic and atraumatic, PERRLA, EOMI, conjunctiva clear, TM's clear and intact, normal nasal mucosa, MMM, oropharynx clear, good dention Neck: trachea midline, no LAD, no JVD, no thyromegaly Chest: no-tender to palpation Heart: RRR, normal S1/S2, no murmurs/rubs/gallops, pulses present, no edema Lungs: no respiratory distress, good air movement, no rales/rhonchi, no wheezing Abdomen: soft, bowel sounds present (RLQ pain) Musculoskeletal: normal structure Neurological: no focal deficit, other (Decreased sensation on right side) Skin: no rash/lesions, capillary refill <2 seconds Psychiatric: normal mood and affect FMR H&P: Results - Labs Result Diagrams: 12/26/17 18:30 12/26/17 18:30 Lab results: WBC 7.7 thou/uL (4.8-10.8) 12/26/17 18:30 Hgb 12.9 g/dL (12.0-16.0) 12/26/17 18:30 Hct 38.7 % (36.0-47.0) 12/26/17 18:30 MCV 86.7 fL (78.0-98.0) 12/26/17 18:30 Plt Count 209 thou/uL (130-400) 12/26/17 18:30 Neutrophils % 65.3 % (42.0-75.0) 12/26/17 18:30 Sodium 139 mmol/L (136-145) 12/26/17 18:30 Potassium 3.7 mmol/L (3.5-5.1) 12/26/17 18:30 Chloride 105 mmol/L (98-107) 12/26/17 18:30 Carbon Dioxide 25 mmol/L (22-29) 12/26/17 18:30 BUN 9 mg/dL (7.0-18.7) 12/26/17 18:30 Creatinine 0.71 mg/dL (0.6-1.1) 12/26/17 18:30 Glucose 113 mg/dL (70-105) H 12/26/17 18:30 Calcium 8.7 mg/dL (7.8-10.44) 12/26/17 18:30 Total Bilirubin 0.4 mg/dL (0.2-1.2) 12/26/17 18:30 AST 13 U/L (5-34) 12/26/17 18:30 ALT 19 U/L (8-55) 12/26/17 18:30 Alkaline Phosphatase 96 U/L (40-150) 12/26/17 18:30 Creatine Kinase 47 U/L (29-168) 12/26/17 18:30 CK-MB (CK-2) 0.6 ng/mL (0-6.6) 12/26/17 18:30 Serum Total Protein 6.8 g/dL (6.0-8.3) 12/26/17 18:30 Albumin 4.1 g/dL (3.5-5.0) 12/26/17 18:30 Lipase 12 U/L (8-78) 12/26/17 18:30 - EKG Interpretation EKG: NSR 92 T waves inverted V1 V2 V3 - Radiology Interpretation CT scan - chest Status: report reviewed by me Additional comment: no evidence of PE. 5mm nodule posterior right lung base. CT scan - head Status: report reviewed by me Additional comment: No acute intracranial process. Persistent left sphenoid sinus opacification. FMR H&P: A/P - Problem List (1) Asthma Current Visit: No Status: Acute Code(s): J45.909 - UNSPECIFIED ASTHMA, UNCOMPLICATED (2) HTN (hypertension) Current Visit: No Status: Acute Code(s): I10 - ESSENTIAL (PRIMARY) HYPERTENSION (3) Morbid obesity Current Visit: No Status: Acute Code(s): E66.01 - MORBID (SEVERE) OBESITY DUE TO EXCESS CALORIES (4) Pulmonary nodule Current Visit: No Status: Acute Code(s): R91.1 - SOLITARY PULMONARY NODULE (5) Altered mental status Current Visit: Yes Status: Acute Code(s): R41.82 - ALTERED MENTAL STATUS, UNSPECIFIED Qualifiers: Altered mental status type: transient alteration of awareness Qualified Code(s): R40.4 - Transient alteration of awareness (6) Vomiting Current Visit: Yes Status: Acute Code(s): R11.10 - VOMITING, UNSPECIFIED Qualifiers: Nausea presence: with nausea (7) Back pain Current Visit: Yes Status: Acute Code(s): M54.9 - DORSALGIA, UNSPECIFIED Qualifiers: Back pain location: low back pain Back pain laterality: right (8) Hx of TIA (transient ischemic attack) and stroke Current Visit: Yes Status: Acute Code(s): Z86.73 - PRSNL HX OF TIA (TIA), AND CEREB INFRC W/O RESID DEFICITS (9) Chest pain Current Visit: Yes Status: Acute Code(s): R07.9 - CHEST PAIN, UNSPECIFIED (10) Headache Current Visit: Yes Status: Acute Code(s): R51 - HEADACHE - Plan 37yo female presents with transient AMS and decreased right sided sensation with concern of stroke. 1. AMS - Obtain Brain CT 2. Chest pain r/o - trops x1 neg, continue to trend - EKG changes: T waves inverted in V1-3 stable from 12/21 - HEART score= 3 Vomiting - 2 wk hx - no electrolyte abnormalities - Zofran 4mg PRN - NPO - IV LR 100mL/hr Headaches - Dx'ed with Cluster headaches - Cont DIRECTOR OF INFORMATICS Fioricet - F/u Brain CT HTN - 216/100's - Hydralazine PRN for BP >220/110 Hx of TIA - Last year at the [facility], obtain records - Cont Aspirin 81 mg - F/u CT brain Back Pain - Hold Naproxen due to HTN - Start Tylenol PRN Asthma - Currently asymptomatic - lungs CTA - Cont DIRECTOR OF INFORMATICS duonebs PRN Right lung nodule - 5mm nodule in posterior right lung base found on CT - F/u with CT in 6mo FMR H&P: Upper Level - Pertinent history 37 yo F presents with acute episode of AMS while in the car today. Her reports they had just gotten snow cones and were sitting in the car when she stated she felt "off" and stared off into space. She felt woozy and also had some chest tightness. She then proceeded to drive home. Her states that while she was driving she was leaning over the steering well and continued to seem dazed. At that time they decided to bring her to the ER where he states it took multiple people to get her out of the car. He reports this reminded him of his own TIAs in the past. - Pertinent findings VS: hypertensive Gen: awake, alert, answering questions appropriately but seems distant at times and is having trouble following conversation HEENT: PERRL, EOMI, conjunctiva non-injected, CN II-XII intact CV: RRR, no murmurs RESP: CTAB ABD: soft, nontender, bowel sounds diffusely present EXT: No edema NEURO: ROM intact, kxba-ov-ctoa intact, grossly decreased sensation on R side ( face, RUE, RLE) and 4/5 administrative accountant strength on R and RLE strength - Plan Date/Time: 12/26/171 I, Barbara Alegria MD, PGY-3, have evaluated this patient and agree with findings/ plan as outlined by underwriting intern resident. Pertinent changes/additions are listed here. 37 yo F presents with AMS and chest pain 1. AMS - DDX includes CVA, TIA, seizure, atypical migraine - Will obtain CT and further imaging as indicated - NPO until bedside swallow - UDS - Consider neuro consult in a.m. 2. Chest pain - EKG with stable t-wave inversion from 12/21 - No ST changes - Will monitor on tele and trend troponins - No chest pain at present 3. HTN - Permissive HTN for 24 hours - Hydralazine PRN BP 220/110 4. ?Dx cluster headaches - Will review clinic records - Fioricet PRN headache - Possibly related to hypertension PPX: Lovenox
[2017-12-26 22:56] LABS: Troponin I 0.023 ng/mL (< 0.028)
[2017-12-26] MEDS ORDERED: hydrALAZINE 20 MG/ML VIAL ONE (23:04)
--- NOTE | 2017-12-27 00:36 | CT ---
NONCONTRAST HEAD CT: HISTORY: Altered mental status. COMPARISON: 11/01/2017 TECHNIQUE: A noncontrast head CT is performed from the skull base to the skull vertex. FINDINGS: No parenchymal hemorrhage. No extraaxial hematoma. No midline shift. The basilar cisterns are phillips nt. Brain volume is age appropriate. Cortical acuna white matter differentiation is preserved. The ventricles and sulci are patent and symmetric. Minimal right maxillary sinus mucosal disease. There is persistent and near complete opacification o f the left sphenoid sinus. Adequate aeration of the mastoid air cells. The calvarium is intact. Questionable presence of the cerebellar tonsils at the level of the foramen magnum. Correlate for ce rebellar tonsillar ectopia versus a Chiari mal formation. This can be better interrogated with an MR I. IMPRESSION: 1. No acute intracranial process. 2. Persistent left sphenoid sinus opacification. 3. Given the patient's symptoms, further evaluation with a brain MRI may be beneficial. POS: SHELBIE
[2017-12-27] MEDS ORDERED: hydrALAZINE 20 MG/ML VIAL SLOW IVP PRN (02:01)
[2017-12-27] MEDS ORDERED: Acetaminophen 325 MG TAB PO PRN (02:01)
[2017-12-27] MEDS ORDERED: Ondansetron ODT 4 MG TAB PO PRN (02:01)
[2017-12-27] MEDS ORDERED: Sodium Chloride 0.9% 1,000 ML IV SCH (02:01)
[2017-12-27 02:12] LABS: Troponin I Less than 0.010 ng/mL (< 0.028)
[2017-12-27 02:16] VITALS: BMI 58.8
--- NOTE | 2017-12-27 05:31 | PDOC.EVN ---
Event Note - Event Note Event Note: Patient seen and examined on 12/26/2017 @ 21:45, Case discussed with Dr. Duncan and agree with history, physical, assessment and plan as documented. Briefly this is a 37 yo WF with h/o asthma. obesity, fibromyalgia, and h/o TIA in 2017 presented with episode of altered mental status. Silvia reports that they had gotten snowcones and were eating them when he noticed that she was staring off and was not responding to him. This lasted about 2-3 minutes. She does not recall the episode. Afterwards she reports not feeling herself but unable to pinpoint why. Whille in ER she did complaining of pressure like chest pain which has now resolved. PMH/PSH/All/Meds/SH reviewed and agree with resident's documentation. Afebrile VSS Exam repeated by me and significant for decreased sensation to light touchon right face, and upper and lower extremity; 4+/5 strength on right; CN 2-[address] brain- negative CTA chest- no evidence of PE A/P: 1) Transient AMS- differential includes TIA/CVA, seizure, complex migraine , seizure - Place in obs - Serial neuro exams - consider MRI/MRA - consider neuro consult 2) Asthma - continue home meds
[2017-12-27 06:20] LABS: Cardiac Risk 4.8 (Less than 4.5)
--- NOTE | 2017-12-27 06:20 | PDOC.FM ---
- Subjective Subjective: 37 yo female seen this morning. Patient has a lot of anxiety about current situation. Patient states this has happened before and would like to get to bottom of it. She was previously diagnosed with cluster headaches, but couldn't afford the medication or the oxygen that was prescribed. Patient also notes some weight loss from n/v over the past couple of weeks. She is able to tolerate soups, snowcones, and liquids well however. Patient continues to complain of paresthesias to right upper extremity. She denies chest pain. She also complains of headache on right side as well. No other complaints today. - Objective Vital Signs & Weight: Vital Signs (12 hours) Temp Pulse Resp BP Pulse Ox 12/27/17 03:25 97.8 F 85 22 H 121/87 93 L 12/27/17 02:15 97.8 F 85 22 H 12/27/17 02:01 97.5 F L 79 20 142/91 H 94 L Weight Weight 114.759 kg Result Diagrams: 12/26/17 18:30 12/26/17 18:30 <Pablo Bella - Last Filed: 12/27/17 08:24> - Objective Vital Signs & Weight: Vital Signs (12 hours) Temp Pulse Pulse Pulse Resp BP BP 12/27/17 11:58 97.7 F 80 20 12/27/17 11:15 85 82 147/98 H 12/27/17 08:00 97.5 F L 82 16 121/82 12/27/17 07:46 97.5 F L 82 16 12/27/17 03:25 97.8 F 85 22 H 12/27/17 02:15 97.8 F 85 22 H 12/27/17 02:01 97.5 F L 79 20 BP BP Pulse Ox 12/27/17 11:58 137/87 92 L 12/27/17 11:15 151/93 H 12/27/17 08:00 92 L 12/27/17 07:46 121/82 92 L 12/27/17 03:25 121/87 93 L 12/27/17 02:15 12/27/17 02:01 142/91 H 94 L Weight Admit Weight 114.759 kg Weight 114.759 kg I&O: 07/01/18 07/02/18 07/03/18 06:59 06:59 06:59 Intake Total 400 Output Total 250 Balance 150 Result Diagrams: 12/26/17 18:30 12/26/17 18:30 <Vicki Marie - Last Filed: 12/27/17 13:16> Phys Exam - Physical Examination Constitutional: NAD HEENT: PERRLA Neck: no nodes Respiratory: no wheezing, clear to auscultation bilateral Cardiovascular: RRR, no significant murmur Gastrointestinal: soft, non-tender, no distention, positive bowel sounds Musculoskeletal: no edema, pulses present Neurological: moves all 4 limbs Decreased sensation to RUE Psychiatric: normal affect, A&O x 3 Skin: no rash <Pablo Bella - Last Filed: 12/27/17 08:24> Dx/Plan (1) Headache Code(s): R51 - HEADACHE Status: Acute (2) Hx of TIA (transient ischemic attack) and stroke Code(s): Z86.73 - PRSNL HX OF TIA (TIA), AND CEREB INFRC W/O RESID DEFICITS Status: Acute (3) Vomiting Code(s): R11.10 - VOMITING, UNSPECIFIED Status: Acute QualifierTitle: Nausea presence: with nausea (4) Asthma Code(s): J45.909 - UNSPECIFIED ASTHMA, UNCOMPLICATED Status: Acute (5) HTN (hypertension) Code(s): I10 - ESSENTIAL (PRIMARY) HYPERTENSION Status: Acute (6) Morbid obesity Code(s): E66.01 - MORBID (SEVERE) OBESITY DUE TO EXCESS CALORIES Status: Acute (7) Pulmonary nodule Code(s): R91.1 - SOLITARY PULMONARY NODULE Status: Acute - Plan Plan: AMS - Brain CT negative - MRI pending - A & O x 4 this AM Chest pain r/o - troponins negative x3 - EKG changes: T waves inverted in V1-3 stable from 12/21 - HEART score= 3 - Will defer stress at this time Vomiting - 2 wk hx - no electrolyte abnormalities - Zofran 4mg PRN - Advance diet as tolerated - IV LR 100mL/hr Headaches - Dx'ed with Cluster headaches - Cont COATER CARBON PAPER Fioricet - Brain CT negative, MRI pending - Likely need outpatient follow up for this HTN - 216/100's - Hydralazine PRN for BP >220/110 - BP well controlled without medication at this point Hx of TIA - [facility] - Cont Aspirin 81 mg - Statin therapy Back Pain - Hold Naproxen due to HTN - Start Tylenol PRN Asthma - Currently asymptomatic - Cont COATER CARBON PAPER duonebs PRN Right lung nodule - 5mm nodule in posterior right lung base found on CT - F/u with CT in 6mo Morbid Obesity - Counseled on weight loss, diet and exercise Disposition: Stable, will await MRI findings <Pablo Bella - Last Filed: 12/27/17 08:24> Attending Addendum - Attending Addendum Date/Time: 12/27/17 2781 I personally evaluated the patient and discussed the management with Dr. Bella. I agree with the History, Examination, Assessment and Plan documented above with any addition or exceptions noted below. The patient's symptoms have resolved. BP is stable. MRI is pending. If MRI is normal, will likely d/c home with outpt follow-up. Pt voiced agreement with this plan. <Vicki Marie - Last Filed: 12/27/17 13:16>
[2017-12-27] MEDS ORDERED: Aspirin 81 mg Enteric Coated Tablet PO SCH (09:00)
[2017-12-27] MEDS ORDERED: Enoxaparin Sodium 40 MG/0.4 ML SYRINGE SC SCH (09:00)
--- NOTE | 2017-12-27 10:24 | MRI ---
BRAIN MRI WITH AND WITHOUT CONTRAST: COMPARISON: Reference is made to a preceding, recent noncontrast head CT. CLINICAL INDICATION: Right-sided decrease in sensation, altered mental status. FINDINGS: Ventricular system is normal in size. There is no midline shift or acute territorial infarction. No hemorrhagic, intracranial susceptibility is seen. There is patient motion which does degrade image quality, thus limiting assessment. No pathologic intraaxial enhancement visualized. Complex opacifi cation of expanded left major sphenoid air cell and lateralized component. Within the left middle cr anial fossa, there is increased, mild volume of CSF signal anterior to the anterior pole of the left temporal lobe. There is also mild focal dilatation of the left temporal horn, without associated, pa thologic enhancement. IMPRESSION: 1. There is no acute intracranial abnormality identified. 2. Prominent sphenoid sinus opacification with associated expansion. This could relate to complex r etention cyst formation. There is no mass-like enhancement to indicate an enhancing polyp. Consider followup with ENT consultation on a nonemergent basis, as clinically indicated. 3. Additional details are described above. POS: SHELBIE
[2017-12-27 11:58] VITALS: TEMP 97.7
[2017-12-27 12:00] LABS: Amphetamine Not Detected (NotDetected); Barbiturates Screen Not Detected (NotDetected); Benzodiazepine Screen Not Detected (NotDetected); Cocaine Metabolite Screen Not Detected (NotDetected); Medtox Control Line Valid? VALID (VALID); Medtox Reader # READER 1; Methadone Not Detected (NotDetected); Methamphetamine Not Detected (NotDetected); Opiate Screen Not Detected (NotDetected); Oxycodone Screen Not Detected (NotDetected); Phencyclidine (PCP) Not Detected (NotDetected); THC/Cannabinoid Screen Not Detected (NotDetected); Tricyclic Screen Not Detected (NotDetected)
[2017-12-27 12:03] VITALS: BP 121/82
[2017-12-27] MEDS ORDERED: Gadobenate Dimeglumine 529 MG/1 ML (20ML VIAL) ONE (13:52)
[2017-12-27] MEDS ORDERED: Atorvastatin Calcium 40 MG TAB PO SCH (21:00)
--- NOTE | 2017-12-28 01:05 | DIS-2 ---
DATE OF ADMISSION: 12/26/2017 DATE OF DISCHARGE: 12/27/2017 RESIDENT: Dr. Bella. ADMITTING ATTENDING: Dr. Arechiga. DISCHARGE ATTENDING: Dr. Marie. Consults for Neurology, Dr. Vela, OT evaluation and treatment, PT evaluation and treatment, speech evaluation and treatment. PROCEDURES: 1. On 12/26/2017, patient underwent a chest thorax CTA that showed no evidence of pulmonary embolism . A 5-mm nodule in the posterior right lung base. Follow up elective CT in 6 months is recommended, abnormal lymph node in the anterior, posterior window measuring 2.2 cm. Recommend clinical correlat ion regarding other adenopathy and followup is recommended that this lymph node can be reassessed at the time of repeat CT of the chest. 2. On 12/26/2017, patient underwent a brain CT that showed no acute intracranial process, persistent left sphenoid sinus opacification. 3. On 12/27/2017, patient underwent a brain MRI that showed there is no acute intracranial abnormali ty identified, prominent sphenoid sinus opacification with associated expansion. This could relate t o complex retention cyst formation. There is no mass like enhancement to indicate an enhancing polyp . Consider following ENT consultation on a nonemergent basis as clinically indicated. PRIMARY DIAGNOSES: 1. Altered mental status. 2. History of transient ischemic attack. 3. Headache. 4. Vomiting. 5. Asthma. 6. Hypertension. 7. Morbid obesity. 8. Pulmonary nodule. DISCHARGE MEDICATIONS: 1. DuoNeb 3 mL nebulized q.4 hours p.r.n. 2. Tramadol 50 mg 1 tab p.o. q.8 hours p.r.n. 3. Naproxen 500 mg p.o. q.12 hours p.r.n. 4. Fioricet 1 tab p.o. p.r.n. 5. Aspirin 81 mg 1 tab p.o. q.a.m. 6. Lipitor 80 mg p.o. at bedtime. 7. Zofran 4 mg p.o. q.6 hours p.r.n. DISCONTINUED MEDICATIONS: None. HISTORY OF PRESENT ILLNESS AND HOSPITAL COURSE: A 37-year-old female who presents with past medical history of asthma, obesity, hyperlipidemia, fibromyalgia, history of TIA and recent diagnosis of clus ter headaches, presents to the ED for chest pain, altered mental status. Today while she was driving with and son. She felt intense wheezing or chest pain followed by no recollection of events until waking in the ED. reports she stopped talking, this became dazed. She was able to co jennifer on her drive home. He helped her walk inside and then drove her to the ED. denies no ticing any facial drooping, unilateral weakness or changes in speech. She reports recently come to [facility] ED 2 weeks ago with lower back pain and vomiting. This has not resolved and reports a 20-pound we ight loss since that time. Also reports loose stools and continues to have lower back pain radiating to the right lower quadrant. The patient also reports new onset headaches several months ago. They started suddenly in the occiput of head and last 2-5 minutes. She often blacks out during these epi sodes. Afterwards, she feels severely fatigued. These are triggered by walking upstairs and using t he restroom. During this hospitalization, patient was afebrile during the hospitalization and on admission to the hospital, she had severely elevated blood pressures to the 200s/100s. Patient did not receive any me dication and blood pressure decreased to normal ranges ranging from the 120s/80s to 140s/90s. Bruno alvarenga underwent an unremarkable head CT scan and brain MRI scan without further intervention planned. Gerardo cabrera did have elevated cholesterol at 202, LDL calculated 131 with a heart risk ratio 4.8. Because of her history of TIAs, it was decided that she would be started on atorvastatin 80 mg for recertific ation. Patient otherwise continued to complain of right upper extremity paresthesias and subjective weakness. Patient does at times have inconsistent neurologic exams as she complains of weakness in h er right upper and lower extremity as well as the right side of her face pointing away from a MCA nishi ology. With a negative MRI scan, it was at that time determined that the patient will be safe to be discharged home with close outpatient followup. Otherwise, the patient tolerated the hospitalization well and was discharged in appropriate condition. DISPOSITION: Stable. DISCHARGE INSTRUCTIONS: 1. Location: She will be discharged home in the care of herself and her family. 2. Diet will be a bariatric diet as we do advise further weight loss. 3. Activity will be as tolerated with no restrictions. 4. Followup will be with her PCP, [facility] in 3 days as well as [facility] in 2 weeks to further discuss the cyst formation in her sphenoid sinuses.
== END 2017-12-27 14:32 | disposition home or self-care (01) ==
LOC: ERS 18:23 → 2SW 23:08 → 2SE 12-27 01:10
PROVIDERS: ADMIT Family Medicine; ATTEND Family Medicine
DX: R07.89 Other chest pain (principal); R40.4 Transient alteration of awareness; J45.909 Unspecified asthma, uncomplicated; E78.5 Hyperlipidemia, unspecified; M79.7 Fibromyalgia; I10 Essential (primary) hypertension; R51 Headache; R91.1 Solitary pulmonary nodule; R11.2 Nausea with vomiting, unspecified; E66.01 Morbid (severe) obesity due to excess calories; Z68.43 Body mass index [BMI] 50.0-59.9, adult; Z86.73 Personal history of transient ischemic attack (TIA), and cerebral infarction without residual deficits; Z79.82 Long term (current) use of aspirin; Z91.040 Latex allergy status; Z91.048 Other nonmedicinal substance allergy status
CPT/HCPCS: 36415; 36416; 70450; 70553; 71275; 80053; 80061; 80306; 82553; 83690; 84484; 84703; 85025; 93005; 94640; 96361; 96372; 96374; A4216; A9579; G0378; G8978-GP-CK; G8979-GP-CI; J0360; J1650; J2930; J7620

== ENCOUNTER 2018-05-12 11:49 | Emergency (ER) | payer BC, SELFPAY ==
[2018-05-12 14:25] LABS: Bilirubin Negative (Negative); Blood, Urine Negative (Negative); Clarity CLOUDY (Clear); Glucose, Urine (Dipstick) Negative (Negative); Leukocyte Small (Negative); Nitrite Negative (Negative); Protein, Urine (Dipstick) Negative (Neg-Trace); Specific Gravity, Urine 1.022 (1.002-1.036); Urobilinogen 0.2 mg/dL (0.2-1.0); pH, Urine 5.5 (5.0-9.0)
[2018-05-12 14:26] LABS: Pregnancy Test - Urine (BHCG) Negative (Negative); Pregu Control Background? CLEAR/WHITE (CLR/WHITE); Pregu Control Bar Appear? YES (CONTROL BAR); Specific Gravity 1.022 (1.002-1.036)
[2018-05-12 14:28] LABS: Bacteria/HPF Rare-Few HPF (None Seen); RBC/HPF 0-3 HPF (0-3)
[2018-05-12 14:32] LABS: Hyaline Casts/LPF 0-3 HYALINE CAST LPF (0-3 Hyaline); Other Casts/LPF None Seen LPF (0-3 Hyaline); Renal Epithelial 0-3 HPF (0-3); Transitional Epithelial 0-3 HPF (0-3)
== END 2018-05-12 16:02 | disposition home or self-care (01) ==
LOC: ERS 11:49
DX: I95.9 Hypotension, unspecified (principal); E66.9 Obesity, unspecified; J45.909 Unspecified asthma, uncomplicated; Z86.73 Personal history of transient ischemic attack (TIA), and cerebral infarction without residual deficits
CPT/HCPCS: 36416; 81003; 81015; 81025; 87086; 99284

== ENCOUNTER 2018-06-28 22:58 | Emergency (ER) | payer SELFPAY ==
[2018-06-28 23:40] LABS: #Eosinphils 0.6 thou/uL (0.0-0.7); #Monocytes 0.5 thou/uL (0.11-0.59); #Neutrophils 6.8 thou/uL (1.40-6.50); %Basophils 0.4 % (0.0-1.0); %Monocytes 5.1 % (0.0-10.0); %Neutrophils 68.5 % (42.0-75.0); Hemoglobin 13.7 g/dL (12.0-16.0); Mean Corpuscular HGB CONC 34.2 g/dL (32.0-36.0); Mean Corpuscular Hemoglobin 29.4 pg (27.0-31.0); Mean Platelet Volume 7.1 fL (7.4-10.4); Platelet Count 227 thou/uL (130-400); RBC Distribution Width 13.3 % (11.5-14.5); Red Blood Cell (RBC) Count 4.65 mill/uL (4.20-5.40); White Blood Cell (WBC) Count 9.9 thou/uL (4.8-10.8)
[2018-06-28 23:59] LABS: ALT (SGPT) 30 U/L (8-55); AST (SGOT) 14 U/L (5-34); Albumin 4.3 g/dL (3.5-5.0); Alkaline Phosphatase 109 U/L (40-150); Anion Gap 16 mmol/L (10-20); BUN (Urea Nitrogen) 11 mg/dL (7.0-18.7); Bilirubin, Total 0.4 mg/dL (0.2-1.2); Calc. Creatinine Clearance 0 mL/min (70-130); Calcium 9.3 mg/dL (7.8-10.44); Carbon Dioxide 23 mmol/L (22-29); Chloride 102 mmol/L (98-107); Estimated GFR-MDRD 84; Globulin 3.1 g/dL (2.4-3.5); Glucose 126 mg/dL (70-105); Potassium 3.7 mmol/L (3.5-5.1); Protein, Total 7.4 g/dL (6.0-8.3); Sodium 137 mmol/L (136-145)
[2018-06-29] MEDS ORDERED: Ondansetron ODT 4 MG TAB ONE (00:44)
[2018-06-29 01:01] LABS: BHCG - Serum Negative (NEGATIVE); Pregs Control Background? CLEAR/WHITE (CLR/WHITE); Pregs Control Bar Appear? YES (CONTROL BAR)
--- NOTE | 2018-06-29 07:46 | RAD ---
UPRIGHT PORTABLE CHEST 1 VIEW: Date: 06/28/18 HISTORY: 37-year-old female with history of cough, nausea, vomiting, diarrhea, and abdominal pain. FINDINGS: There are some minimally increased bronchovascular markings, particularly in the infrahilar regions b ilaterally. These appear slightly more prominent than on the prior 09/16/17 study. There is no conflu ent lobar pneumonia. No significant pleural effusion. No cardiomegaly. IMPRESSION: Minimally increased bronchovascular markings in the infrahilar regions on the right, slightly more pr ominent than on prior study. This could conceivably represent a small focus of acute atypical pneumon ia. Correlate clinically. Consider follow-up imaging. No confluent pneumonia. POS: SHELBIE
== END 2018-06-29 01:28 | disposition home or self-care (01) ==
LOC: ERS 22:58
DX: J18.9 Pneumonia, unspecified organism (principal); E66.9 Obesity, unspecified; J45.909 Unspecified asthma, uncomplicated; Z86.73 Personal history of transient ischemic attack (TIA), and cerebral infarction without residual deficits
CPT/HCPCS: 36415; 71045; 80053; 83690; 84703; 85025; J7620; Q0162

== ENCOUNTER 2018-09-09 19:30 | Outpatient (CLI) | payer OTHER | END 2018-09-09 19:31 | disposition home or self-care (01) | LOC: SLEEPLAB 19:30 | PROVIDERS: ATTEND Family Medicine | DX: G47.33 Obstructive sleep apnea (adult) (pediatric) (principal); R53.83 Other fatigue; R40.0 Somnolence; R09.89 Other specified symptoms and signs involving the circulatory and respiratory systems; E66.9 Obesity, unspecified; Z68.43 Body mass index [BMI] 50.0-59.9, adult | CPT/HCPCS: 95811 ==

== ENCOUNTER 2018-10-07 21:47 | Observation (INO) | payer OTHER ==
--- NOTE | 2018-10-07 22:34 | RAD ---
Chest one view HISTORY: Cough. COMPARISON: Earlier exam on the same date. FINDINGS: Cardiac silhouette is at by projection. Shallow inspiration accentuates pulmonary markings. Mediastinum is midline. No lobar consolidation or evidence of pneumothorax. gambling monitor leads overlie the chest. IMPRESSION: No active cardiopulmonary abnormalities are demonstrated.
[2018-10-07 22:36] LABS: #Eosinphils 0.4 thou/uL (0.0-0.7); #Lymphocytes 0.9 thou/uL (1.20-3.40); #Monocytes 0.5 thou/uL (0.11-0.59); %Basophils 0.3 % (0.0-1.0); %Eosinophils 4.1 % (0.0-10.0); %Lymphocytes 9.5 % (21.0-51.0); %Monocytes 4.7 % (0.0-10.0); %Neutrophils 81.4 % (42.0-75.0); Hemoglobin 13.5 g/dL (12.0-16.0); Mean Corpuscular HGB CONC 33.2 g/dL (32.0-36.0); Mean Corpuscular Hemoglobin 29.3 pg (27.0-31.0); Mean Corpuscular Volume 88.2 fL (78.0-98.0); Mean Platelet Volume 7.2 fL (7.4-10.4); Platelet Count 225 thou/uL (130-400); Red Blood Cell (RBC) Count 4.59 mill/uL (4.20-5.40); White Blood Cell (WBC) Count 9.9 thou/uL (4.8-10.8)
[2018-10-07] MEDS ORDERED: cefTRIAXone\\ROCEPHIN 2 GM VIAL ONE (22:45)
[2018-10-07] MEDS ORDERED: Acetaminophen 325 MG TAB ONE (22:45)
[2018-10-07 23:07] LABS: ALT (SGPT) 32 U/L (8-55); AST (SGOT) 28 U/L (5-34); Albumin 4.6 g/dL (3.5-5.0); Alkaline Phosphatase 120 U/L (40-150); Anion Gap 13 mmol/L (10-20); BUN (Urea Nitrogen) 11 mg/dL (7.0-18.7); Bilirubin, Total 0.3 mg/dL (0.2-1.2); Calc. Creatinine Clearance 0 mL/min (70-130); Calcium 9.6 mg/dL (7.8-10.44); Carbon Dioxide 28 mmol/L (22-29); Chloride 100 mmol/L (98-107); Estimated GFR-MDRD 88; Globulin 3.1 g/dL (2.4-3.5); Glucose 135 mg/dL (70-105); Potassium 4.2 mmol/L (3.5-5.1); Protein, Total 7.7 g/dL (6.0-8.3); Sodium 137 mmol/L (136-145)
--- NOTE | 2018-10-07 23:54 | CT ---
CT arteriogram chest with IV contrast and 3-D imaging HISTORY: Chest pain. Dyspnea. COMPARISON: 12/26/2017. FINDINGS: No central pulmonary artery defects are apparent. Pulmonary arteries are not completely opa cified. Good contrast opacification of the aorta with normal branching of the great vessels. Tiny nonspecific subpleural nodule at the right posterolateral lung base is stable. Enlarged lymph node at the prevascular space is unchanged in appearance. No pleural fluid or pneumothorax. IMPRESSION: No CT evidence of pulmonary embolus. Chronic type findings are stable.
[2018-10-08] MEDS ORDERED: methylPREDNISolone Sod Succ/PF 125 MG/2 ML VIAL ONE (00:11)
[2018-10-08] MEDS ORDERED: Magnesium 2 GM/50 ML BAG (IN WATER) ONE (00:11)
--- NOTE | 2018-10-08 00:23 | PDOC.FPRHP ---
- History of Present Illness Chief Complaint: SOB History of Present Illness: 37 yo F with asthma and morbid obesity presents to ED for worsening cough & dypsnea. Sxs started 1 week ago with "allergy flare up," consisting of productive cough of green sputum. Yesterday patient's sxs declined with fever of 102F and severe dyspnea, chest tightness & wheezing that did not improve w/ albuterol INH and symbicort. She was seen at [facility] today rx to go to ED but opted for outpt tx & started on prednisone & azithromcyib. Due to continued worsening of sxs came to ED. Presented to ED severely dyspneic with O2 of 92% and given MgS, decadron, alb nebs and 2L NC. - Allergies/Adverse Reactions Allergies Allergy/AdvReac Type Severity Reaction Status Date / Time aloe vera Allergy Verified 10/08/18 01:41 latex Allergy Verified 10/08/18 01:41 - Home Medications Medication Instructions Recorded Confirmed Type Ipratropium/Albuterol Sulfate 3 ml NEB C4MS-UB PRN #0 neb 06/01/13 10/08/18 Rx [DuoNeb] Azithromycin [Zithromax] 250 mg PO DAILY 10/08/18 10/08/18 History Budesonide-Formoterol [Symbicort 1 puff INH BID 10/08/18 10/08/18 History 160-4.5] Labetalol [Normodyne] 100 mg PO BID 10/08/18 10/08/18 History Loratadine 10 mg PO DAILY PRN 10/08/18 10/08/18 History Prednisone [predniSONE 10 mg 10 mg PO QID 10/08/18 10/08/18 History Dosepak] - History PMHx: Hx of unprovoked PE, fibromyalgia, hx of cervical CA s/p tx, asthma, seasonal allergies PSHx: C section, R knee meniscal repair FHx:hx of blood clots, asthma, DM2 Social: denies t/e/d - Review of Systems General: reports: weight/appetite/sleep changes. denies: fever/chills ENT: reports: rhinorrhea Respiratory: reports: cough, congestion, shortness of breath Cardiovascular: denies: chest pain, palpitation Gastrointestinal: denies: nausea, vomiting, diarrhea, abdominal pain Genitourinary: denies: dysuria Skin: denies: rashes, lesions Musculoskeletal: denies: pain, tenderness Neurological: reports: weakness. denies: seizure - Vital signs BP: 130/89, Pulse: 95, Resp: 24, Pain: 7, O2 sat: 100 on 2L Oxygen, Time: 2018 00:03. - Physical Exam Constitutional: NAD, awake, alert and oriented, well developed -Constitutional: obese body habitus HEENT: normocephalic and atraumatic, PERRLA, EOMI, conjunctiva clear Neck: supple, FROM, trachea midline Chest: no-tender to palpation, no lesions Heart: RRR, normal S1/S2 Lungs: no respiratory distress -Lungs: mild expiratory wheezing limited expiratory effort due to body habitus Abdomen: non-tender Neurological: no focal deficit Skin: no rash/lesions, good turgor FMR H&P: Results - Labs Result Diagrams: 10/07/18 22:24 10/07/18 22:24 Lab results: WBC 9.9 thou/uL (4.8-10.8) 10/07/18 22:24 Hgb 13.5 g/dL (12.0-16.0) 10/07/18 22:24 Hct 40.5 % (36.0-47.0) 10/07/18 22:24 MCV 88.2 fL (78.0-98.0) 10/07/18 22:24 Plt Count 225 thou/uL (130-400) 10/07/18 22:24 Neutrophils % 81.4 % (42.0-75.0) H 10/07/18 22:24 Sodium 137 mmol/L (136-145) 10/07/18 22:24 Potassium 4.2 mmol/L (3.5-5.1) 10/07/18 22:24 Chloride 100 mmol/L (98-107) 10/07/18 22:24 Carbon Dioxide 28 mmol/L (22-29) 10/07/18 22:24 BUN 11 mg/dL (7.0-18.7) 10/07/18 22:24 Creatinine 0.74 mg/dL (0.6-1.1) 10/07/18 22:24 Glucose 135 mg/dL (70-105) H 10/07/18 22:24 Lactic Acid 1.6 mmol/L (0.5-2.2) 10/07/18 22:24 Calcium 9.6 mg/dL (7.8-10.44) 10/07/18 22:24 Total Bilirubin 0.3 mg/dL (0.2-1.2) 10/07/18 22:24 AST 28 U/L (5-34) 10/07/18 22:24 ALT 32 U/L (8-55) 10/07/18 22:24 Alkaline Phosphatase 120 U/L (40-150) 10/07/18 22:24 B-Natriuretic Peptide Less than 10.0 pg/mL (0-100) 10/07/18 22:24 Serum Total Protein 7.7 g/dL (6.0-8.3) 10/07/18 22:24 Albumin 4.6 g/dL (3.5-5.0) 10/07/18 22:24 - EKG Interpretation EKG: sinus tachycardia - Radiology Interpretation Chest x-ray Status: image reviewed by me, report reviewed by me Additional comment: poor inspiratory effort no PNA/consolidations CT scan - chest Status: report reviewed by me Additional comment: CT angio: neg. for PE FMR H&P: A/P - Problem List (1) Acute bronchitis Current Visit: Yes Status: Acute Code(s): J20.9 - ACUTE BRONCHITIS, UNSPECIFIED (2) Asthma exacerbation Current Visit: Yes Status: Acute Code(s): J45.901 - UNSPECIFIED ASTHMA WITH (ACUTE) EXACERBATION (3) History of pulmonary embolism Current Visit: Yes Status: Acute Code(s): Z86.711 - PERSONAL HISTORY OF PULMONARY EMBOLISM (4) HTN (hypertension) Current Visit: No Status: Acute Code(s): I10 - ESSENTIAL (PRIMARY) HYPERTENSION (5) Hx of TIA (transient ischemic attack) and stroke Current Visit: No Status: Acute Code(s): Z86.73 - PRSNL HX OF TIA (TIA), AND CEREB INFRC W/O RESID DEFICITS (6) Fibromyalgia Current Visit: No Status: Chronic (7) Morbid obesity Current Visit: No Status: Chronic Code(s): E66.01 - MORBID (SEVERE) OBESITY DUE TO EXCESS CALORIES (8) FRAN on CPAP Current Visit: Yes Status: Acute Code(s): G47.33 - OBSTRUCTIVE SLEEP APNEA ( ADULT) (PEDIATRIC); Z99.89 - DEPENDENCE ON OTHER ENABLING MACHINES AND DEVICES (9) Asthma Current Visit: No Status: Acute Code(s): J45.909 - UNSPECIFIED ASTHMA, UNCOMPLICATED - Plan #Likely acute bronchitis -With cough >5 days and CXR/CTA with no evidence of PNA, Flu neg, likely acute bronchitis -Continue albuterol NEB prn, 5 day steroid course -S/p rocephin, continue azithromycin to completion for anti-inflammatory component -Continue supportive care -Will obtain procal -mIVF due to dec po intake, dry on exam -Morbid obesity and asthma inc. patient risk of decline -Admit to medical/obs #Acute asthma exacerbation -s/p MgS,solumedrol, ventolin -Likely triggered by acute bronchitis/seasonal allergies -Consider step up therapy w/ singulair -See plan above #FRAN on CPAP -Recent dx, will start on CPAP while in hospital #Hx of PE -Ddimer neg, CTA neg for PE -Lovenox for ppx #Hx of TIA -continue home meds diet: HH dvt ppx: lovenox gi ppx: n/i code: full Will discuss w/ Dr. Weaver FMR H&P: Upper Level - Pertinent history 37 yo CF with PMH of asthma, FRAN, and morbid obesity presenting with worsening cough and SOB since last week. Pt was seen at PCP on 10/07 and diagnosed with CAP likely exacerbating asthma. Recommendation was for pt to present to ER due to respiratory distress, however, pt opted for outpatient treatment. Was given rx for Azithromycin and prednisone. - Pertinent findings VSS Gen: morbidly obese in NAD CV: RRR Resp: shallow respiratory effort and difficult to auscultate due to body habitus , relatively CTAB - Plan Date/Time: 10/08/18 0023 I, Yefri Ordonez MD PGY3, have evaluated this patient and agree with findings/ plan as outlined by management internship resident. Pertinent changes/additions are listed here. 1. Likely acute bronchitis -Pt presents for continued cough and URI symptoms. CXR and CTA reveal no acute cardiopulmonary process. -Pt has received Ceftriaxone in ER. Will continue Azithromycin for anti- inflammatory component. -Obtain procalcitonin. -Nebulized breathing treatments PRN -mIVF as pt endorses decreased PO intake. -Complete 5 day course of steroids. -Consider addition of Singulair for step up therapy to treat pt's asthma. -Symptomatic medications will be provided. 2. FRAN -CPAP qHS FULL code PPx: Lovenox for VTE, no GI indicated disposition: Admit to observation for anticipated length of stay less than two midnights, pending clinical course. Addendum - Attending - Attending Attestation Date/Time: 10/08/18 8581 I personally evaluated the patient and discussed the management with Dr. Loredo/ José Luis. H&P repeated by me. I agree with the History, Examination, Assessment and Plan documented above with any addition or exceptions noted below. Asthma exaccerbation secondary to acute bronchitis- nebs, steroids, azithromycin. O2 as needed. At the time of my exam patient with diffusely decreased breath sounds and end exp wheeze. Serial exams today. May need another day pending course.
[2018-10-08] MEDS ORDERED: Albuterol Sulfate 2.5 mg/3 ml Neb ONE (00:48)
[2018-10-08 01:45] VITALS: BMI 58.4
[2018-10-08] MEDS ORDERED: Lactated Ringer's 1,000 ML IV SCH (02:00)
[2018-10-08] MEDS: Guaifenesin DM 100-10/5 ML UDCUP PO PRN ×2 (02:21→23:19)
[2018-10-08 02:31] LABS: Troponin I Less than 0.010 ng/mL (< 0.028)
[2018-10-08 05:58] LABS: Troponin I Less than 0.010 ng/mL (< 0.028)
[2018-10-08] MEDS: Enoxaparin Sodium 40 MG/0.4 ML SYRINGE SC SCH (09:37)
[2018-10-08] MEDS: predniSONE 20 MG TAB PO SCH (09:38)
[2018-10-08] MEDS: Azithromycin 250 MG TAB PO SCH (09:38)
[2018-10-08] MEDS: Albuterol Sulfate 1.25 MG/3 ML NEB NEB PRN ×2 (11:16→23:20)
--- NOTE | 2018-10-09 06:43 | PDOC.FM ---
- Subjective Subjective: NAEO. Patient reports feeling well, denies wheezing or SOB. States she feels ready for discharge. She has been tolerating PO well and ambulating with mild SOB. - Objective MAR Reviewed: Yes Vital Signs & Weight: Vital Signs (12 hours) Temp Pulse Resp BP BP Pulse Ox 10/09/18 02:59 92 L 10/09/18 02:45 99 10/08/18 23:20 97 20 165/90 H 93 L 10/08/18 19:29 98.0 F 108 H 20 147/90 H 92 L Weight Admit Weight 122.561 kg Weight 122.561 kg I&O: 10/07/18 10/08/18 10/09/18 06:59 06:59 06:59 Intake Total 851 3433 Balance 851 3433 Result Diagrams: 10/07/18 22:24 10/07/18 22:24 Phys Exam - Physical Examination Constitutional: NAD HEENT: PERRLA, moist MMs, sclera anicteric Neck: full ROM Respiratory: no wheezing, clear to auscultation bilateral Cardiovascular: RRR Gastrointestinal: soft, non-tender, no distention, positive bowel sounds Neurological: moves all 4 limbs Psychiatric: normal affect, A&O x 3 Skin: no rash, normal turgor, cap refill <2 seconds Dx/Plan (1) Acute bronchitis Code(s): J20.9 - ACUTE BRONCHITIS, UNSPECIFIED Status: Acute (2) Asthma exacerbation Code(s): J45.901 - UNSPECIFIED ASTHMA WITH (ACUTE) EXACERBATION Status: Acute (3) History of pulmonary embolism Code(s): Z86.711 - PERSONAL HISTORY OF PULMONARY EMBOLISM Status: Acute (4) FRAN on CPAP Code(s): G47.33 - OBSTRUCTIVE SLEEP APNEA (ADULT) (PEDIATRIC); Z99.89 - DEPENDENCE ON OTHER ENABLING MACHINES AND DEVICES Status: Acute (5) HTN (hypertension) Code(s): I10 - ESSENTIAL (PRIMARY) HYPERTENSION Status: Acute (6) Hx of TIA (transient ischemic attack) and stroke Code(s): Z86.73 - PRSNL HX OF TIA (TIA), AND CEREB INFRC W/O RESID DEFICITS Status: Acute (7) Morbid obesity Code(s): E66.01 - MORBID (SEVERE) OBESITY DUE TO EXCESS CALORIES Status: Acute (8) Fibromyalgia Status: Chronic - Plan Plan: Likely acute bronchitis - With cough >5 days and CXR/CTA with no evidence of PNA, Flu neg, likely acute bronchitis - Continue albuterol NEB prn, 5 day steroid course - S/p rocephin, continue azithromycin to completion for anti-inflammatory component - Pt reports she has supply of azithro and steroids at home that she was prescribed in clinic on Wednesday. - Continue supportive care Acute asthma exacerbation - s/p MgS,solumedrol, ventolin - Likely triggered by acute bronchitis/seasonal allergies - See plan above FRAN on CPAP - Recent dx, will start on CPAP while in hospital Hx of PE - Ddimer neg, CTA neg for PE - Lovenox for ppx Hx of TIA - continue home meds diet: HH dvt ppx: lovenox gi ppx: n/i code: full DISPO: likely dc today Addendum - Attending - Attending Attestation Date/Time: 10/09/18 9211 I personally evaluated the patient and discussed the management with Dr. Lema I agree with the History, Examination, Assessment and Plan documented above with any addition or exceptions noted below. Excellent air movement and lungs without wheeze. O2 sat 95% on RA. Stable for d /c
[2018-10-09] MEDS: Albuterol Sulfate 1.25 MG/3 ML NEB NEB PRN (07:10)
[2018-10-09] MEDS: Guaifenesin DM 100-10/5 ML UDCUP PO PRN (08:25)
[2018-10-09] MEDS: Enoxaparin Sodium 40 MG/0.4 ML SYRINGE SC SCH (08:25)
[2018-10-09] MEDS: predniSONE 20 MG TAB PO SCH (08:25)
[2018-10-09] MEDS: Azithromycin 250 MG TAB PO SCH (08:26)
[2018-10-09 08:37] VITALS: BP 165/97; TEMP 97.8
--- NOTE | 2018-10-10 01:56 | DIS ---
DATE OF ADMISSION: 10/08/2018 DATE OF DISCHARGE: 10/09/2018 RESIDENT: Marivel Lema MD ADMITTING ATTENDING: Kristina Weaver MD. DISCHARGE ATTENDING: Kristina Weaver MD. CONSULTS: None. PROCEDURES: None. PRIMARY DIAGNOSES: Acute bronchitis, acute asthma exacerbation. SECONDARY DIAGNOSES: Obstructive sleep apnea on continuous positive airway pressure, history of pulmonary embolism, history of transient ischemic attack. DISCHARGE MEDICATIONS: 1. Azithromycin 250 mg oral daily. 2. DuoNeb every 4 hours as needed. 3. Loratadine 10 mg oral daily as needed. 4. Zithromax 250 mg oral daily. 5. Prednisone 10 mg oral 4 times daily. 6. Labetalol 100 mg oral twice daily. 7. Symbicort one puff inhalation twice daily. DISCONTINUED MEDICATIONS: None. HISTORY OF PRESENT ILLNESS/HOSPITAL COURSE: This is a 37-year-old female with a history of asthma and morbid obesity, presented to the ED for worsening cough and dyspnea. The patient said that her symptoms started about 1 week ago with allergy flare-up consisting of productive cough of green sputum. The day before presentation, the patient said that her symptoms were fever of 102F and severe shortness of breath, chest tightness and wheezing that did not improve with albuterol or Symbicort at home. The patient was seen at the [facility] by Dr. Glover, who recommended to go to the ED. The patient opted for outpatient treatment and started prednisone and azithromycin. Due to continued worsening of symptoms, the patient came to the ED later that evening. The patient presented in the ED severely short of breath with an O2 of 92% and given magnesium, Decadron, albuterol nebulizer with 2 L nasal cannula. The patient was noted to have mild expiratory wheezing on auscultation. The patient's labs were unremarkable. The patient had an EKG, that showed sinus tachycardia. The chest x-ray showed poor inspiratory effort, but no sign of pneumonia or consolidation. A CT was performed to rule out pulmonary embolism. The patient was admitted for observation and was continued on her steroids and azithromycin. The patient was given albuterol neb treatments. The patient was given maintenance IV fluids due to decreased p.o. intake. The fluids were discontinued after several hours as patient was tolerating PO the patient' s respiratory status improved greatly and on the day of discharge, no wheezes were heard on auscultation. DISPOSITION: Stable. DISCHARGE INSTRUCTIONS: 1. Location, home. 2. Activity, ad socorro. 3. Diet; heart healthy. 4. Follow up with PCP Dr. Hyun Downs within a week. Job ID: [id number] MTDD
== END 2018-10-09 11:18 | disposition home or self-care (01) ==
LOC: ERS 21:47 → 2SW 10-08 00:24
PROVIDERS: ADMIT Family Medicine; ATTEND Family Medicine
DX: J20.9 Acute bronchitis, unspecified (principal); J45.901 Unspecified asthma with (acute) exacerbation; G47.33 Obstructive sleep apnea (adult) (pediatric); I10 Essential (primary) hypertension; E66.01 Morbid (severe) obesity due to excess calories; Z68.43 Body mass index [BMI] 50.0-59.9, adult; Z91.041 Radiographic dye allergy status; Z91.09 Other allergy status, other than to drugs and biological substances; Z79.899 Other long term (current) drug therapy; Z99.89 Dependence on other enabling machines and devices; Z86.73 Personal history of transient ischemic attack (TIA), and cerebral infarction without residual deficits; Z86.711 Personal history of pulmonary embolism
CPT/HCPCS: 36415; 36416; 71045; 71275; 80053; 83605; 83880; 84145; 84484; 85025; 85379; 87040; 87804; 93005; 94640; 94660; 94760; 96361; 96365; 96367; 96372; 96375; G0378; J0696; J1650; J2930; J3475; J7512; J7611; J7620; Q9966

== ENCOUNTER 2019-06-11 22:40 | Emergency (ER) | payer OTHER | END 2019-06-12 00:30 | disposition left against medical advice (07) | LOC: ERS 22:40 | DX: Z53.21 Procedure and treatment not carried out due to patient leaving prior to being seen by health care provider (principal) | CPT/HCPCS: 94640; J7620 ==

== ENCOUNTER 2019-08-15 07:20 | Emergency (ER) | payer OTHER, SELFPAY ==
[2019-08-15] MEDS ORDERED: Ibuprofen 200 MG TAB ONE (08:56)
[2019-08-15] MEDS ORDERED: Acetaminophen 325 MG TAB ONE (08:56)
== END 2019-08-15 09:39 | disposition home or self-care (01) ==
LOC: ERS 07:20
DX: S06.0X9A Concussion with loss of consciousness of unspecified duration, initial encounter (principal); S13.4XXA Sprain of ligaments of cervical spine, initial encounter; E66.9 Obesity, unspecified; J45.909 Unspecified asthma, uncomplicated; Z86.73 Personal history of transient ischemic attack (TIA), and cerebral infarction without residual deficits; V43.92XA Unspecified car occupant injured in collision with other type car in traffic accident, initial encounter
CPT/HCPCS: 99283

== ENCOUNTER 2019-10-07 01:25 | Emergency (ER) | payer OTHER ==
[2019-10-07 02:59] LABS: #Eosinphils 0.4 thou/uL (0.0-0.7); #Lymphocytes 1.9 thou/uL (1.20-3.40); #Monocytes 0.7 thou/uL (0.11-0.59); #Neutrophils 7.7 thou/uL (1.40-6.50); %Basophils 0.2 % (0.0-1.0); %Lymphocytes 17.2 % (21.0-51.0); %Monocytes 6.8 % (0.0-10.0); %Neutrophils 71.8 % (42.0-75.0); Hemoglobin 13.5 g/dL (12.0-16.0); Mean Corpuscular Hemoglobin 30.2 pg (27.0-31.0); Mean Corpuscular Volume 88.7 fL (78.0-98.0); Mean Platelet Volume 7.8 fL (7.4-10.4); Platelet Count 186 thou/uL (130-400); RBC Distribution Width 13.1 % (11.5-14.5); Red Blood Cell (RBC) Count 4.47 mill/uL (4.20-5.40); White Blood Cell (WBC) Count 10.8 thou/uL (4.8-10.8)
[2019-10-07 03:26] LABS: Bilirubin Negative (Negative); Blood, Urine Negative (Negative); Clarity Turbid (Clear); Glucose, Urine (Dipstick) Normal (Negative); Leukocyte Negative Leu/uL (Negative); Nitrite Negative (Negative); Protein, Urine (Dipstick) Negative (Neg-Trace); Urobilinogen Normal mg/dL (Less than 2)
[2019-10-07 03:27] LABS: Pregnancy Test - Urine (BHCG) Negative (Negative); Pregu Control Background? CLEAR/WHITE (CLR/WHITE); Pregu Control Bar Appear? YES (CONTROL BAR); Specific Gravity 1.024 (1.002-1.036)
[2019-10-07] MEDS ORDERED: Acetaminophen 325 MG TAB ONE (04:08)
[2019-10-07] MEDS ORDERED: Bicillin LA 2.4 MILL.UNITS/4 ML SYRINGE ONE (04:10)
[2019-10-07] MEDS ORDERED: Bicillin LA 1.2 MILLION UNITS/2 ML SYRINGE ONE (04:21)
[2019-10-07 04:44] LABS: Albumin 3.9 g/dL (3.5-5.0)
[2019-10-07 04:45] LABS: Chloride 105 mmol/L (98-107); Potassium 3.8 mmol/L (3.5-5.1); Sodium 139 mmol/L (136-145)
[2019-10-07 04:46] LABS: Calcium 8.5 mg/dL (7.8-10.44); Glucose 105 mg/dL (70-105)
[2019-10-07 04:47] LABS: Globulin 2.8 g/dL (2.4-3.5); Protein, Total 6.7 g/dL (6.0-8.3)
[2019-10-07 04:48] LABS: Anion Gap 13 mmol/L (10-20); Bilirubin, Total 0.4 mg/dL (0.2-1.2); Carbon Dioxide 25 mmol/L (22-29)
[2019-10-07 04:49] LABS: Alkaline Phosphatase 86 U/L (40-110)
[2019-10-07 04:50] LABS: Calc. Creatinine Clearance 0 mL/min (70-130); Estimated GFR-MDRD Greater than 90
[2019-10-07 04:51] LABS: AST (SGOT) 13 U/L (5-34); BUN (Urea Nitrogen) 9 mg/dL (7.0-18.7)
[2019-10-07 04:52] LABS: ALT (SGPT) 22 U/L (8-55)
--- NOTE | 2019-10-07 08:15 | RAD ---
SINGLE VIEW CHEST: HISTORY: Dyspnea. COMPARISON: 10/07/2018 FINDINGS: Single view of the chest show normal sized cardiomediastinal silhouette. There is no evidence of cons olidation, mass, or pleural effusion. The bones are unremarkable. IMPRESSION: No evidence of acute cardiopulmonary disease. POS: C
--- NOTE | 2019-10-14 10:36 | EKG ---
Test Reason : EMERGENCY Blood Pressure : / mmHG Vent. Rate : 093 BPM Atrial Rate : 093 BPM P-R Int : 136 ms QRS Dur : 082 ms QT Int : 362 ms P-R-T Axes : 010 011 014 degrees QTc Int : 450 ms Normal sinus rhythm Normal ECG Similar to EKG of 10/07/2018 Confirmed by DEMETRIUS Lee, JANIE ([id number]), editor managing newspaper CATHY DÍAZ ([id number]) on 10/14/2019 10:35:38 AM Referred By: Confirmed By:JANIE ROMO M.D.
== END 2019-10-07 05:00 | disposition home or self-care (01) ==
LOC: ERS 01:25
DX: J02.0 Streptococcal pharyngitis (principal); J45.901 Unspecified asthma with (acute) exacerbation; I10 Essential (primary) hypertension; Z86.73 Personal history of transient ischemic attack (TIA), and cerebral infarction without residual deficits; Z03.818 Encounter for observation for suspected exposure to other biological agents ruled out
CPT/HCPCS: 36415; 71045; 80053; 81003; 81025; 83605; 83880; 84484; 85025; 87430; 87635; 87804; 93005; 96360; 96361; 96372; J0561; U0002

== ENCOUNTER 2019-11-27 05:08 | Emergency (ER) | payer OTHER, SELFPAY ==
[2019-11-27] MEDS ORDERED: Ketorolac Tromethamine 30 MG/ML VIAL ONE (05:28)
[2019-11-27 05:55] LABS: #Eosinphils 0.6 thou/uL (0.0-0.7); #Lymphocytes 1.9 thou/uL (1.20-3.40); #Monocytes 0.6 thou/uL (0.11-0.59); #Neutrophils 5.9 thou/uL (1.40-6.50); %Basophils 0.2 % (0.0-1.0); %Eosinophils 6.6 % (0.0-10.0); %Lymphocytes 21.3 % (21.0-51.0); %Monocytes 6.6 % (0.0-10.0); %Neutrophils 65.3 % (42.0-75.0); Hemoglobin 12.1 g/dL (12.0-16.0); Mean Corpuscular HGB CONC 32.3 g/dL (32.0-36.0); Mean Corpuscular Hemoglobin 29.2 pg (27.0-31.0); Mean Corpuscular Volume 90.5 fL (78.0-98.0); Mean Platelet Volume 7.5 fL (7.4-10.4); Platelet Count 179 thou/uL (130-400); RBC Distribution Width 13.4 % (11.5-14.5); Red Blood Cell (RBC) Count 4.15 mill/uL (4.20-5.40); White Blood Cell (WBC) Count 9.1 thou/uL (4.8-10.8)
[2019-11-27 06:03] LABS: BHCG - Serum Negative (NEGATIVE); Pregs Control Background? CLEAR/WHITE (CLR/WHITE); Pregs Control Bar Appear? YES (CONTROL BAR)
[2019-11-27 06:18] LABS: ALT (SGPT) 17 U/L (8-55); AST (SGOT) 12 U/L (5-34); Albumin 3.9 g/dL (3.5-5.0); Alkaline Phosphatase 90 U/L (40-110); Anion Gap 11 mmol/L (10-20); BUN (Urea Nitrogen) 8 mg/dL (7.0-18.7); Bilirubin, Total 0.2 mg/dL (0.2-1.2); Calc. Creatinine Clearance 0 mL/min (70-130); Calcium 8.7 mg/dL (7.8-10.44); Carbon Dioxide 26 mmol/L (22-29); Chloride 104 mmol/L (98-107); Estimated GFR-MDRD Greater than 90; Globulin 2.9 g/dL (2.4-3.5); Glucose 124 mg/dL (70-105); Potassium 3.8 mmol/L (3.5-5.1); Protein, Total 6.8 g/dL (6.0-8.3); Sodium 137 mmol/L (136-145)
[2019-11-27 06:39] LABS: Bilirubin Negative (Negative); Blood, Urine 1+ (Negative); Clarity Clear (Clear); Glucose, Urine (Dipstick) Normal (Negative); Leukocyte 25 Leu/uL (Negative); Mucous/LPF Rare LPF (<2+); Nitrite Negative (Negative); Protein, Urine (Dipstick) Negative (Neg-Trace); RBC/HPF 0-3 HPF (0-3); Urobilinogen Normal mg/dL (Less than 2); WBC/HPF 0-3 HPF (0-3)
[2019-11-27 06:40] LABS: Bacteria/HPF 1+ HPF (None Seen)
--- NOTE | 2019-11-27 07:46 | CT ---
PRELIMINARY REPORT/[facility]/EMERGENCY AFTER HOURS PROCEDURE PROCEDURE: CT Scan Abdomen and Pelvis without IV Contrast Material. HISTORY: RIGHT lower quadrant pain. TECHNIQUE: Axial images were performed with multiplanar reconstructions without IV contrast material. The patient was not given oral contrast material. COMPARISON: 12/19/2017. FINDINGS: Clear lung bases. Splenomegaly at 17.7 cm. Liver, adrenals, pancreas show no abnormality. Kidneys show no urinary tra ct stones or obstructive uropathy. There has been previous cholecystectomy with normal sized biliary tree. No abdominal ascites or pneumoperitoneum. Normal aorta. No lymphadenopathy. 3 cm omental umbilical hernia. No bowel obstruction or inflammation and normal appendix in the RIGHT lower quadrant. No other abnor mality in the RIGHT lower quadrant.. Pelvis shows no masses or free fluid. Unremarkable reproductive organs and urinary bladder. No acute bony abnormality. IMPRESSION: Normal appendix RIGHT lower quadrant and no other abnormality in the region. Unchanged splenomegaly. Unchanged omental umbilical hernia. No other abnormality identified. ELECTRONICALLY SIGNED BY: Darren Kenney MD Nov 27, 2019 6:38:11 AM CDT This report is intended for review by the ordering physician only, in accordance of law. If you recei ve this report in error, please call [facility] at [phone]. FINAL REPORT BY DR. HUANG EMERGENCY AFTER HOURS STUDY CT ABDOMEN NONCONTRAST CT PELVIS NONCONTRAST: (Urolithiasis protocol) DATE: 11/27/2019 HISTORY: 38-year-old female with right lower quadrant abdominal pain COMPARISON: 12/19/2017 TECHNIQUE: IV injection of iodinated contrast media: None Oral contrast media: None FINDINGS: Other than for urolithiasis, the lack of IV and oral contrast limits the evaluation. No major disagreement with preliminary report by [facility]. IMPRESSION: 1. No urolithiasis or obstructive uropathy. 2. Normal appendix. 3. Mild interval increase in size of fat-containing umbilical hernia, with increase in surrounding fa t stranding. 4. New hepatic steatosis. Transcribed Date/Time: 11/27/2019 8:04 AM
== END 2019-11-27 07:00 | disposition home or self-care (01) ==
LOC: ERS 05:08
DX: R10.31 Right lower quadrant pain (principal); R11.2 Nausea with vomiting, unspecified; E66.9 Obesity, unspecified; J45.909 Unspecified asthma, uncomplicated; I10 Essential (primary) hypertension; Z86.73 Personal history of transient ischemic attack (TIA), and cerebral infarction without residual deficits; M79.7 Fibromyalgia; Z79.51 Long term (current) use of inhaled steroids
CPT/HCPCS: 74176; 80053; 81003; 81015; 84703; 85025; 96361; 96374; J1885

== ENCOUNTER 2020-01-24 15:27 | Emergency (ER) | payer SELFPAY ==
[2020-01-24 17:37] LABS: #Eosinphils 0.3 thou/uL (0.0-0.7); #Lymphocytes 1.6 thou/uL (1.20-3.40); #Monocytes 0.5 thou/uL (0.11-0.59); #Neutrophils 4.9 thou/uL (1.40-6.50); %Basophils 0.4 % (0.0-1.0); %Eosinophils 3.8 % (0.0-10.0); %Lymphocytes 22.2 % (21.0-51.0); %Monocytes 6.4 % (0.0-10.0); %Neutrophils 67.2 % (42.0-75.0); Hemoglobin 12.9 g/dL (12.0-16.0); Mean Corpuscular HGB CONC 33.3 g/dL (32.0-36.0); Mean Corpuscular Hemoglobin 29.3 pg (27.0-31.0); Mean Corpuscular Volume 87.8 fL (78.0-98.0); Mean Platelet Volume 7.7 fL (7.4-10.4); Platelet Count 218 thou/uL (130-400); RBC Distribution Width 13.1 % (11.5-14.5); White Blood Cell (WBC) Count 7.3 thou/uL (4.8-10.8)
--- NOTE | 2020-01-24 17:47 | CT ---
Exam: CT cervical spine without contrast HISTORY: Trauma. Pain. COMPARISON: 01/17/2013 FINDINGS: No craniocervical dissociation. Appropriate alignment of the lateral masses of C1 and C2. Intact odon toid process Appropriate alignment of the facets. Straightening of normal cervical lordosis is presumed to be due to patient position, muscle spasm or cervical collar. Current study does not assess for ligamentous injury. Stable grade 1 anterolisthesis of C2 upon C3 Soft tissue neck structures: No mass, lymphadenopathy or hematoma. No prevertebral soft tissue swelli ng. Upper mediastinum and lung apices: Unremarkable Central spinal canal: Neural foramina and central spinal canal are patent. Evaluation is limited by t echnique Vertebral bodies: Cervical spine vertebral body height is maintained. No fracture. IMPRESSION: 1. No fracture 2. Straightening of cervical lordosis as above. If there is concern for ligamentous injury, MRI can b e performed.
--- NOTE | 2020-01-24 17:52 | CT ---
CT BRAIN: 01/24/20 PROVIDED CLINICAL HISTORY: Altered mental status. FINDINGS: Comparison 12/26/17. The ventricular system appears normal in size and morphology. There is no evidence for intracranial h emorrhage or mass effect. There is stable partial opacification of the sphenoid sinus left of midline . The extracranial soft tissues and osseous structures demonstrate an otherwise unremarkable CT appea shelby. IMPRESSION: No evidence for intracranial hemorrhage or mass effect. POS: KURT
--- NOTE | 2020-01-24 17:57 | RAD ---
Exam:Left shoulder 3 views HISTORY: Pain. Hypertension. Difficulty moving arm. COMPARISON: None FINDINGS: Glenohumeral joint space is preserved. No fracture or dislocation. Acromioclavicular and co racoclavicular distances are maintained. Visualized left ribs and lung parenchyma do not demonstrate any acute abnormality. IMPRESSION: No fracture or dislocation.
[2020-01-24 18:01] LABS: ALT (SGPT) 31 U/L (8-55); AST (SGOT) 20 U/L (5-34); Albumin 4.4 g/dL (3.5-5.0); Alkaline Phosphatase 96 U/L (40-110); Anion Gap 15 mmol/L (10-20); BUN (Urea Nitrogen) 13 mg/dL (7.0-18.7); Bilirubin, Total 0.4 mg/dL (0.2-1.2); Calc. Creatinine Clearance 0 mL/min (70-130); Calcium 9.3 mg/dL (7.8-10.44); Carbon Dioxide 25 mmol/L (22-29); Chloride 101 mmol/L (98-107); Estimated GFR-MDRD Greater than 90; Globulin 2.6 g/dL (2.4-3.5); Glucose 101 mg/dL (70-105); Potassium 3.9 mmol/L (3.5-5.1); Sodium 137 mmol/L (136-145)
[2020-01-24 18:02] LABS: Acetaminophen Less than 6.0 mcg/mL (10.0-30.0); Alcohol Less than 10 mg/dL (Less than 10); CK (CPK) 49 U/L (29-168); Salicylate Less than 8.0 mg/dL (15.0-30.0)
--- NOTE | 2020-01-24 18:04 | RAD ---
PORTABLE CHEST: 01/24/20 PROVIDED CLINICAL HISTORY: Altered mental status. FINDINGS: Comparison 10/07/19. Evaluation is limited by patient body habitus. Cardiac and mediastinal silhouette is within normal limits. No focal consolidation, pleural fluid or pneumothorax apparent. IMPRESSION: No evidence for an acute cardiopulmonary process. POS: KURT
[2020-01-24 18:27] LABS: Bilirubin Negative (Negative); Blood, Urine Negative (Negative); Clarity Clear (Clear); Glucose, Urine (Dipstick) Normal (Negative); Ketone, Urine Negative (Negative); Leukocyte Negative Leu/uL (Negative); Nitrite Negative (Negative); Protein, Urine (Dipstick) Negative (Neg-Trace); Specific Gravity, Urine 1.027 (1.002-1.036); Urobilinogen Normal mg/dL (Less than 2); pH, Urine 5.5 (5.0-9.0)
[2020-01-24 18:30] LABS: Pregnancy Test - Urine (BHCG) Negative (Negative); Pregu Control Background? CLEAR/WHITE (CLR/WHITE); Pregu Control Bar Appear? YES (CONTROL BAR); Specific Gravity 1.027 (1.002-1.036)
[2020-01-24 18:38] LABS: Amphetamine Not Detected (NotDetected); Barbiturates Screen Not Detected (NotDetected); Benzodiazepine Screen Not Detected (NotDetected); Cocaine Metabolite Screen Not Detected (NotDetected); Medtox Control Line Valid? VALID (VALID); Medtox Reader # READER 4; Methadone Not Detected (NotDetected); Methamphetamine Not Detected (NotDetected); Opiate Screen Not Detected (NotDetected); Oxycodone Screen Not Detected (NotDetected); Phencyclidine (PCP) Not Detected (NotDetected); THC/Cannabinoid Screen Not Detected (NotDetected); Tricyclic Screen Not Detected (NotDetected)
== END 2020-01-24 19:15 | disposition home or self-care (01) ==
LOC: ERS 15:27
DX: M25.512 Pain in left shoulder (principal); E66.9 Obesity, unspecified; J45.909 Unspecified asthma, uncomplicated; Z86.73 Personal history of transient ischemic attack (TIA), and cerebral infarction without residual deficits; I10 Essential (primary) hypertension
CPT/HCPCS: 36415; 70450; 71045; 72125; 80053; 80306; 80307; 81003; 81025; 82550; 84484; 85025; 87086; 93005

== ENCOUNTER 2020-05-19 17:36 | Emergency (ER) | payer OTHER, SELFPAY ==
[~2020-05-19 17:36] MED LIST changes: -ISOVUE-370 76%-LOCM 1 ML ONE; +Iopamidol 370 76% 100 ML VIAL ONE
[2020-05-19] MEDS ORDERED: Ketorolac Tromethamine 30 MG/ML VIAL ONE (18:05)
[2020-05-19] MEDS ORDERED: Acetaminophen 500 MG TAB ONE (18:05)
[2020-05-19 18:29] LABS: #Eosinphils 0.4 thou/uL (0.0-0.7); #Lymphocytes 1.7 thou/uL (1.20-3.40); #Monocytes 0.6 thou/uL (0.11-0.59); #Neutrophils 6.2 thou/uL (1.40-6.50); %Basophils 0.4 % (0.0-1.0); %Eosinophils 4.1 % (0.0-10.0); %Lymphocytes 19.1 % (21.0-51.0); %Monocytes 6.9 % (0.0-10.0); %Neutrophils 69.6 % (42.0-75.0); Hemoglobin 12.6 g/dL (12.0-16.0); Mean Corpuscular HGB CONC 33.5 g/dL (32.0-36.0); Mean Corpuscular Hemoglobin 29.2 pg (27.0-31.0); Mean Platelet Volume 7.4 fL (7.4-10.4); Platelet Count 195 thou/uL (130-400); RBC Distribution Width 13.2 % (11.5-14.5); Red Blood Cell (RBC) Count 4.32 mill/uL (4.20-5.40); White Blood Cell (WBC) Count 8.9 thou/uL (4.8-10.8)
--- NOTE | 2020-05-19 18:32 | RAD ---
Portable frontal chest radiograph: 05/19/2020 COMPARISON: 01/24/2020 HISTORY: Chest pain, epigastric pain FINDINGS: Lungs are clear. Heart and mediastinal contours appear within normal limits. IMPRESSION: No acute findings.
[2020-05-19 18:51] LABS: ALT (SGPT) 37 U/L (8-55); AST (SGOT) 24 U/L (5-34); Alkaline Phosphatase 97 U/L (40-110); Anion Gap 13 mmol/L (10-20); BUN (Urea Nitrogen) 10 mg/dL (7.0-18.7); Bilirubin, Total 0.4 mg/dL (0.2-1.2); Calc. Creatinine Clearance 0 mL/min (70-130); Calcium 8.6 mg/dL (7.8-10.44); Carbon Dioxide 27 mmol/L (22-29); Chloride 102 mmol/L (98-107); Estimated GFR-MDRD Greater than 90; Globulin 3.1 g/dL (2.4-3.5); Glucose 104 mg/dL (70-105); Lipase 8 U/L (8-78); Potassium 3.7 mmol/L (3.5-5.1); Protein, Total 7.1 g/dL (6.0-8.3); Sodium 138 mmol/L (136-145)
[2020-05-19 19:11] LABS: BHCG - Serum Negative (NEGATIVE); Pregs Control Background? CLEAR/WHITE (CLR/WHITE); Pregs Control Bar Appear? YES (CONTROL BAR)
--- NOTE | 2020-05-19 19:45 | CT ---
CT angiogram chest: 05/19/2020 COMPARISON: 10/07/2018 HISTORY: Central chest pain TECHNIQUE: Axial CT imaging at 2.5 mm intervals through the chest with IV contrast using CT angiogram protocol. Coronal and sagittal 3-D reformatted imaging obtained. FINDINGS: There is no axillary lymphadenopathy. There is a round hypodense lesion within the prevascular space measuring 2.1 cm in transverse dimensi on and 2.5 cm in AP dimension, demonstrating Hounsfield units of less than 10, suggesting a small mediastinal cyst, slightly enlarged when compared to studies dating back to 2018. On the 2018 exam th is lesion measured 1.7 x 2.2 cm. The spleen is enlarged measuring 16.1 cm in AP dimension. The incompletely visualized liver appears e nlarged as well. Cholecystectomy clips are present. No pleural, pericardial, or mediastinal fluid is seen. There is no pneumothorax seen on either side. There is a right lower lobe nodule measuring approximately 5 mm, not significantly changed when erica red to studies dating back to 12/26/2017. No evidence for pulmonary arterial embolism. No acute osseous abnormality. 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 Nonspecific hepatosplenomegaly. No pulmonary arterial embolism.
== END 2020-05-19 20:45 | disposition home or self-care (01) ==
LOC: ERS 17:36
DX: R07.9 Chest pain, unspecified (principal); R91.1 Solitary pulmonary nodule; J45.909 Unspecified asthma, uncomplicated; I10 Essential (primary) hypertension; E66.9 Obesity, unspecified; M79.7 Fibromyalgia; Z79.899 Other long term (current) drug therapy; Z86.73 Personal history of transient ischemic attack (TIA), and cerebral infarction without residual deficits
CPT/HCPCS: 71045; 71275; 80053; 83690; 84484; 84703; 85025; 85379; 93005; 94760; 96374; J1885; Q9967